=== PATIENT | male | born 1940 | race Caucasian/White ===

== ENCOUNTER → 2017-05-01 | Outpatient (REF) | payer MEDICARE ==
[~2017-05-01] MED LIST: FLOM5CAP PO; LIPI10TA PO; TRAM50TA2 PO
[2017-05-01 15:55] LABS: MEAN CORPUSCULAR HEMOGLOBIN 33.3 pg (27.0-33.0); MEAN CORPUSCULAR HGB CONC 33.7 g/dl (32.0-36.5); RED CELL DISTRIBUTION WIDTH 12.2 % (11.5-14.5); WHITE BLOOD COUNT 6.4 K/mm3 (4.0-10.0)
[2017-05-01 15:56] LABS: ALBUMIN 3.8 GM/DL (3.2-5.2); ALBUMIN/GLOBULIN RATIO 1.46 (1.00-1.93); ALKALINE PHOSPHATASE 53 U/L (45-117); ALT/SGPT 22 U/L (12-78); ANION GAP 3 MEQ/L (8-16); AST/SGOT 15 U/L (15-37); BILIRUBIN,TOTAL 0.6 MG/DL (0.2-1.0); BLOOD UREA NITROGEN 15 MG/DL (7-18); CALCIUM LEVEL 8.7 MG/DL (8.8-10.2); CARBON DIOXIDE LEVEL 29 MEQ/L (21-32); CHLORIDE LEVEL 107 MEQ/L (98-107); CHOLESTEROL LEVEL 140 MG/DL (<200); CREATININE FOR GFR 0.87 MG/DL (0.70-1.30); GLOMERULAR FILTRATION RATE > 60.0 (>42); GLUCOSE, FASTING 93 MG/DL (83-110); POTASSIUM SERUM 4.5 MEQ/L (3.5-5.1); SODIUM LEVEL 139 MEQ/L (136-145); TOTAL PROTEIN 6.4 GM/DL (6.4-8.2); TRIGLYCERIDES LEVEL 99 MG/DL (<150)
== END ==
LOC: M SFHCPLAZ 13:45
PROVIDERS: ATTEND Internal Medicine
DX: Z86.010 Personal history of colon polyps (principal); R73.01 Impaired fasting glucose; E78.00 Pure hypercholesterolemia, unspecified

== ENCOUNTER → 2017-09-12 | Outpatient (CLI) | payer MEDICARE ==
--- NOTE | 2017-09-12 16:04 | REP ---
MRI LUMBAR SPINE WITHOUT CONTRAST: HISTORY: Spondylosis. Decreased signal intensity on T2-weighted images is present in the visualized thoracic and lumbar intervertebral discs. The discs are decreased in height. These findings are consistent with disc degeneration. A diffuse disc bulge with associated osteophyte formation is present at the L1-2 level. There is hypertrophy of the ligamenta flava and posterior articulating facets. These findings produce moderate central canal stenosis. There is compression of the left L1 nerve in the neural foramen. The right L1 nerve exits the neural foramen without compression. A diffuse disc bulge with associated osteophyte formation is present at the L2-3 level. There is hypertrophy of the ligamenta flava and posterior articulating facets. These findings produce mild central canal stenosis. The L2 nerves exit the neural foramina without compression. A diffuse disc bulge is present at the L3-4 level. There are 4 mm of retrolisthesis of L3 on L4. There is hypertrophy of the posterior articulating facets. There is minimal compression of the thecal sac. There is compression of the right L3 nerve in the neural foramen. The left L3 nerve exits the neural foramen without compression. A laminectomy defect is present. A diffuse disc bulge with associated osteophyte formation is present at the L4-5 level. There is minimal compression of the thecal sac. There is hypertrophy of the posterior articulating facets. There is compression of the L4 nerves in the neural foramina. A laminectomy defect is present. A diffuse disc bulge with associated osteophyte formation is present at the L5-S1 level. There is minimal compression of the thecal sac. There is hypertrophy of the posterior articulating facets. There is compression of the L5 nerves in the neural foramina. A laminectomy defect is present. The conus medullaris is normal in appearance terminating at the level of the T12-L1 intervertebral disc. Increased signal intensity on T2-weighted images is present in the endplates of the L1 through S1 vertebral bodies. This represents degenerative change. There scoliosis convex to the right. IMPRESSION: 1. Moderate central canal stenosis at the L1-2 level secondary to disc bulge, ligamentous and facet hypertrophy and osteophyte formation. 2. Mild central canal stenosis at the L2-3 level secondary to disc bulge, ligamentous and facet hypertrophy, and osteophyte formation. 3. Diffuse disc bulge and retrolisthesis at the L3-4 level with minimal thecal sac compression. 4. Diffuse disc bulge with associated osteophyte formation at the L4-5 and L5-S1 levels with minimal thecal sac compression. 5. The patient is status post L3 to L5 laminectomy. Signed by Kyle Thompson MD 09/12/2017 04:12 P
== END ==
LOC: M PLARAD 14:06
PROVIDERS: ATTEND Physical Medicine & Rehabilitation
DX: M51.26 Other intervertebral disc displacement, lumbar region (principal); M48.061 Spinal stenosis, lumbar region without neurogenic claudication; M12.88 Other specific arthropathies, not elsewhere classified, other specified site; M51.27 Other intervertebral disc displacement, lumbosacral region; M96.1 Postlaminectomy syndrome, not elsewhere classified

== ENCOUNTER → 2018-03-27 | Outpatient (REF) | payer MEDICARE ==
[2018-03-27 19:40] LABS: SOURCE, BODY FLUID LFT ELBOW
[2018-03-27 19:41] LABS: APPEARANCE, BODY FLUID TURBID (CLEAR); CRYSTALS, BODY FLUID NONE SEEN (NONE SEEN); SOURCE, BODY FLUID CRYSTALS RT ELBOW; SYNOVIAL FLUID COLOR RED (YELLOW)
[2018-03-27 19:45] LABS: BF MONONUCLEAR CELL % 90.5 % (0-0); BF POLYMORPHONUCLEAR CELL % 9.5 % (0-0); RBC BODY FLUID 81 10^3/uL (<2); WBC BODY FLUID 273 /uL (0-10)
[2018-03-27 19:50] LABS: BF DIFF IF INDICATED? YES (NO)
[2018-03-27 19:57] LABS: SOURCE, BODY FLUID GLUCOSE RT ELBOW; SOURCE, BODY FLUID URIC ACID RT ELBOW; URIC ACID, BODY FLUID 5.1 MG/DL (NOT ESTABLISHED)
[2018-03-30 08:34] LABS: BODY FLUID RHEUMATOID SCREEN NEGATIVE (NEGATIVE)
[2018-03-30 08:35] LABS: MUCIN CLOT TEST 1+ (4+)
== END ==
LOC: M LAB REF 18:25
DX: M70.21 Olecranon bursitis, right elbow (principal)
CPT/HCPCS: 82945

== ENCOUNTER → 2018-03-31 | Outpatient (REF) | payer MEDICARE ==
[2018-03-31 16:29] LABS: APPEARANCE, URINE CLEAR (CLEAR); BACTERIA, URINE AUTO NEGATIVE (NEGATIVE); BILIRUBIN, URINE AUTO NEGATIVE (NEGATIVE); BLOOD, URINE BLOOD NEGATIVE (NEGATIVE); COLOR, URINE YELLOW (YELLOW); GLUCOSE, URINE (UA) AUTO NEGATIVE (NEGATIVE); KETONE, URINE AUTO NEGATIVE (NEGATIVE); LEUKOCYTE ESTERASE, URINE AUTO NEGATIVE (NEGATIVE); MUCUS, URINE SMALL (NEGATIVE); NITRITE, URINE AUTO NEGATIVE (NEGATIVE); PROTEIN, URINE AUTO NEGATIVE (NEGATIVE); RBC, URINE AUTO 0 /HPF (0-3); SPECIFIC GRAVITY URINE AUTO 1.018 (1.002-1.035); SQUAMOUS EPITHELIAL CELL UR AU 0 /HPF (0-6); UROBILINOGEN, URINE AUTO 0.2 mg/dL (0.0-2.0); WBC, URINE AUTO 1 /HPF (0-3)
[2018-03-31 16:30] LABS: ESTIMATED AVERAGE GLUCOSE 105 MG/DL (60-110); HEMOGLOBIN 14.4 g/dl (13.5-17.5); HEMOGLOBIN A1c 5.3 %; MEAN CORPUSCULAR HEMOGLOBIN 32.5 pg (27.0-33.0); MEAN CORPUSCULAR HGB CONC 33.5 g/dl (32.0-36.5); MEAN CORPUSCULAR VOLUME 97.1 fl (80.0-96.0); PLATELET COUNT, AUTOMATED 224 10^3/uL (150-450); RED BLOOD COUNT 4.43 10^6/uL (4.30-6.10); RED CELL DISTRIBUTION WIDTH 12.7 % (11.5-14.5); WHITE BLOOD COUNT 6.7 10^3/uL (4.0-10.0)
[2018-03-31 16:31] LABS: ALBUMIN 3.7 GM/DL (3.2-5.2); ALBUMIN/GLOBULIN RATIO 1.23 (1.00-1.93); ALKALINE PHOSPHATASE 61 U/L (45-117); ALT/SGPT 23 U/L (12-78); ANION GAP 7 MEQ/L (8-16); AST/SGOT 16 U/L (7-37); BILIRUBIN,TOTAL 0.5 MG/DL (0.2-1.0); BLOOD UREA NITROGEN 13 MG/DL (7-18); CALCIUM LEVEL 8.5 MG/DL (8.8-10.2); CARBON DIOXIDE LEVEL 27 MEQ/L (21-32); CHLORIDE LEVEL 108 MEQ/L (98-107); CHOLESTEROL LEVEL 116 MG/DL (<200); CREATININE FOR GFR 0.87 MG/DL (0.70-1.30); GLOMERULAR FILTRATION RATE > 60.0 (>42); GLUCOSE, FASTING 93 MG/DL (70-100); HDL CHOLESTEROL 50 MG/DL (>40); LDL CHOLESTEROL 48.2 MG/DL (<100); NON-HDL-C 66 MG/DL; POTASSIUM SERUM 4.3 MEQ/L (3.5-5.1); PSA SCREENING 0.37 NG/ML (< 4.0); SODIUM LEVEL 142 MEQ/L (136-145); TOTAL PROTEIN 6.7 GM/DL (6.4-8.2); TRIGLYCERIDES LEVEL 89 MG/DL (<150)
[2018-03-31 16:49] LABS: MALB URINE SIEMENS 21.1 MG/L; MAU/CREAT RATIO 13.4 MCG/MG (0.0-30.0)
== END ==
LOC: M LABDRAW1 15:59
DX: K21.9 Gastro-esophageal reflux disease without esophagitis (principal); R73.01 Impaired fasting glucose; E78.00 Pure hypercholesterolemia, unspecified; N40.2 Nodular prostate without lower urinary tract symptoms; R31.9 Hematuria, unspecified
CPT/HCPCS: 80053

== ENCOUNTER 2020-05-26 23:13 | Emergency (ER) | payer MEDICARE ==
[~2020-05-26 23:13] MED LIST changes: +FLOM0.4C39 PO; -FLOM5CAP PO
[2020-05-26] MEDS ORDERED: METOPROLOL 5 MG/5 ML VIAL ONE ×2 (23:51)
[2020-05-26] MEDS ORDERED: METOPROLOL TART 50 MG TAB ONE (23:51)
[2020-05-27] MEDS ORDERED: METOPROLOL TART 50 MG TAB ONE (00:07)
[2020-07-02 17:08] LABS: HEMATOCRIT 47.6 % (42.0-52.0); HEMOGLOBIN 15.7 g/dl (13.5-17.5); MEAN CORPUSCULAR HEMOGLOBIN 32.6 pg (27.0-33.0); PLATELET COUNT, AUTOMATED 217 10^3/uL (150-450); RED BLOOD COUNT 4.81 10^6/uL (4.30-6.10); WHITE BLOOD COUNT 6.3 10^3/uL (4.0-10.0)
--- NOTE | 2020-07-12 15:48 | ECGEPIP ---
SINUS RHYTHM POSSIBLE INFERIOR MYOCARDIAL INFARCTION, PROBABLY OLD WITH POSTERIOR EXTENSION BORDERLINE ECG INTERPRETATION BASED ON A DEFAULT AGE OF 40 YEARS NO OLD AVAILABLE SEE SCANNED DOWNTIME REPORT MTDD
--- NOTE | 2020-07-13 17:24 | ECGEPIP ---
ATRIAL FIBRILLATION WITH RVR POSSIBLE PRIOR INFERIOR WV NONSPECIFIC ST & T-WAVE CHANGES SEE SCANNED DOWNTIME REPORT MTDD
[2020-08-05 10:52] LABS: BLOOD UREA NITROGEN 16 MG/DL (7-18); CALCIUM LEVEL 8.9 MG/DL (8.8-10.2); CARBON DIOXIDE LEVEL 30 MEQ/L (21-32); CHLORIDE LEVEL 103 MEQ/L (98-107); CREATININE FOR GFR 1.01 MG/DL (0.70-1.30); GLOMERULAR FILTRATION RATE > 60.0 (>35); GLUCOSE, FASTING 132 MG/DL (70-100); POTASSIUM SERUM 3.7 MEQ/L (3.5-5.1); SODIUM LEVEL 138 MEQ/L (136-145); TROPONIN I < 0.02 NG/ML (< 0.10)
== END 2020-05-27 00:23 | disposition home or self-care (01) ==
LOC: M ED 23:13
DX: I48.0 Paroxysmal atrial fibrillation (principal)

== ENCOUNTER → 2020-06-02 | Outpatient (REF) | payer MEDICARE ==
[~2020-06-02] MED LIST changes: +METO1TAB32
[2020-07-01 01:20] LABS: HEMATOCRIT 45.6 % (42.0-52.0); MEAN CORPUSCULAR HEMOGLOBIN 33.6 pg (27.0-33.0); MEAN CORPUSCULAR HGB CONC 32.9 g/dl (32.0-36.5); MEAN CORPUSCULAR VOLUME 102.2 fl (80.0-96.0); PLATELET COUNT, AUTOMATED 225 10^3/uL (150-450); RED BLOOD COUNT 4.46 10^6/uL (4.30-6.10); WHITE BLOOD COUNT 7.9 10^3/uL (4.0-10.0)
[2020-07-19 03:01] LABS: ALBUMIN 3.9 GM/DL (3.2-5.2); ALT/SGPT 36 U/L (12-78); BILIRUBIN,TOTAL 0.5 MG/DL (0.2-1.0); BLOOD UREA NITROGEN 13 MG/DL (7-18); CALCIUM LEVEL 9.1 MG/DL (8.8-10.2); CARBON DIOXIDE LEVEL 30 MEQ/L (21-32); CHLORIDE LEVEL 107 MEQ/L (98-107); CHOLESTEROL LEVEL 125 MG/DL (<200); CHOLESTEROL RISK RATIO 2.403 (<5); CREATININE FOR GFR 0.91 MG/DL (0.70-1.30); GLOMERULAR FILTRATION RATE > 60.0 (>35); GLUCOSE, FASTING 85 MG/DL (70-100); HDL CHOLESTEROL 52 MG/DL (>40); LDL CHOLESTEROL 57 MG/DL (<100); NON-HDL-C 73 MG/DL; POTASSIUM SERUM 4.3 MEQ/L (3.5-5.1); SODIUM LEVEL 140 MEQ/L (136-145); TOTAL PROTEIN 6.7 GM/DL (6.4-8.2); TRIGLYCERIDES LEVEL 81 MG/DL (<150)
== END ==
LOC: M SFHCPLAZ 11:26
PROVIDERS: ATTEND Internal Medicine
DX: E78.00 Pure hypercholesterolemia, unspecified (principal); I10 Essential (primary) hypertension

== ENCOUNTER 2020-08-08 22:42 | Emergency (ER) | payer MEDICARE ==
[~2020-08-08] VITALS: Ht 193 cm; Wt 95.0 kg
[~2020-08-08 22:42] MED LIST changes: -METO1TAB32
--- NOTE | 2020-08-09 00:08 | REPVR ---
PROCEDURE INFORMATION: Exam: XR Chest, 1 View Exam date and time: 08/08/2020 11:38 PM Age: 80 years old Clinical indication: Other: Chest pain TECHNIQUE: Imaging protocol: XR of the chest Views: 1 view. COMPARISON: CR Chest, 2 view PA, Lat 05/26/2020 11:52 PM FINDINGS: Lungs: Degree of lung inflation is normal. No evidence of pulmonary edema. No focal consolidation or parenchymal lung mass. Pleural space: No pleural effusion or pneumothorax. Heart/Mediastinum: Cardiac silhouette appears normal. No adenopathy or hilar mass. Bones/joints: Osseous structures show no concerning abnormality. 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 IMPRESSION: No acute or focal cardiopulmonary process. Electronically signed by: Ap Griffith On 08/09/2020 00:08:37 AM
[2020-08-09 00:17] LABS: BASO # 0.1 10^3/uL (0.0-0.2); BASO % 0.7 % (0.0-1.0); EOS # 0.3 10^3/uL (0.0-0.5); EOS % 4.9 % (0.0-3.0); HEMATOCRIT 42.6 % (42.0-52.0); HEMOGLOBIN 13.8 g/dl (13.5-17.5); LYMPH % 28.4 % (24.0-44.0); MEAN CORPUSCULAR HEMOGLOBIN 32.2 pg (27.0-33.0); MEAN CORPUSCULAR HGB CONC 32.4 g/dl (32.0-36.5); MEAN CORPUSCULAR VOLUME 99.5 fl (80.0-96.0); MONO # 0.7 10^3/uL (0.0-0.8); MONO % 9.3 % (0.0-5.0); NEUTROPHILS % 56.4 % (36.0-66.0); PLATELET COUNT, AUTOMATED 223 10^3/uL (150-450); RED BLOOD COUNT 4.28 10^6/uL (4.30-6.10)
[2020-08-09 00:59] LABS: BLOOD UREA NITROGEN 21 MG/DL (7-18); CALCIUM LEVEL 8.7 MG/DL (8.8-10.2); CARBON DIOXIDE LEVEL 27 MEQ/L (21-32); CHLORIDE LEVEL 109 MEQ/L (98-107); CK-MB VALUE MASS 2.3 NG/ML (<3.6); CPK CREATINE PHOSPHOKINASE 120 U/L (39-308); CREATININE FOR GFR 0.97 MG/DL (0.70-1.30); GLOMERULAR FILTRATION RATE > 60.0 (>35); GLUCOSE, FASTING 107 MG/DL (70-100); MAGNESIUM LEVEL 2.5 MG/DL (1.8-2.4); MB/CK RELATIVE INDEX 1.92 (< OR =4); POTASSIUM SERUM 4.4 MEQ/L (3.5-5.1); SODIUM LEVEL 141 MEQ/L (136-145); TROPONIN I < 0.02 NG/ML (< 0.10)
[2020-08-09 01:59] VITALS: BP 136/68
[2020-08-09] MEDS ORDERED: METO1TAB32 (02:02)
--- NOTE | 2020-08-09 07:20 | ECGEPIP ---
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
== END 2020-08-09 02:39 | disposition home or self-care (01) ==
LOC: M ED 22:42
DX: I48.91 Unspecified atrial fibrillation (principal); Z88.1 Allergy status to other antibiotic agents

== ENCOUNTER → 2021-06-06 | Outpatient (REF) | payer MEDICARE ==
[~2021-06-06] MED LIST changes: +ASPI-161 PO; +ATOR40TA75 PO; +AUGM875T28 PO; +GLUC500C37 PO; +HYDR-4517; +HYDR-4517 PO; +METO1TAB32; +METO1TAB32 PO; +OMEP-218 PO; +TADA20TA
[2021-06-06 18:15] LABS: HEMATOCRIT 37.8 % (42.0-52.0); HEMOGLOBIN 13.1 g/dl (13.5-17.5); MEAN CORPUSCULAR HEMOGLOBIN 32.2 pg (27.0-33.0); MEAN CORPUSCULAR HGB CONC 34.7 g/dl (32.0-36.5); MEAN CORPUSCULAR VOLUME 92.9 fl (80.0-96.0); PLATELET COUNT, AUTOMATED 199 10^3/uL (150-450); RED BLOOD COUNT 4.07 10^6/uL (4.30-6.10); WHITE BLOOD COUNT 5.5 10^3/uL (4.0-10.0)
[2021-06-06 18:49] LABS: HEMOGLOBIN A1c 5.1 %
[2021-06-06 19:17] LABS: ALBUMIN 3.1 GM/DL (3.2-5.2); ALT/SGPT 475 U/L (12-78); BILIRUBIN,TOTAL 4.9 MG/DL (0.2-1.0); BLOOD UREA NITROGEN 10 MG/DL (7-18); CALCIUM LEVEL 8.5 MG/DL (8.8-10.2); CARBON DIOXIDE LEVEL 26 MEQ/L (21-32); CHLORIDE LEVEL 106 MEQ/L (98-107); CHOLESTEROL LEVEL 194 MG/DL (<200); CHOLESTEROL RISK RATIO 16.166 (<5); CREATININE FOR GFR 0.76 MG/DL (0.70-1.30); GLOMERULAR FILTRATION RATE > 60.0 (>35); GLUCOSE, FASTING 92 MG/DL (70-100); HDL CHOLESTEROL 12 MG/DL (>40); LDL CHOLESTEROL 158 MG/DL (<100); NON-HDL-C 182 MG/DL; POTASSIUM SERUM 3.7 MEQ/L (3.5-5.1); SODIUM LEVEL 140 MEQ/L (136-145); TOTAL PROTEIN 6.2 GM/DL (6.4-8.2); TRIGLYCERIDES LEVEL 119 MG/DL (<150)
== END ==
LOC: M PLALAB 16:47
PROVIDERS: ATTEND Internal Medicine
DX: R73.01 Impaired fasting glucose (principal); N40.2 Nodular prostate without lower urinary tract symptoms; I48.0 Paroxysmal atrial fibrillation; E78.00 Pure hypercholesterolemia, unspecified; Z86.010 Personal history of colon polyps

== ENCOUNTER 2021-06-07 18:38 | Inpatient (IN) | payer MEDICARE ==
[~2021-06-07] VITALS: Ht 193 cm; Wt 86.7 kg
[~2021-06-07 18:38] MED LIST changes: -ASPI-161 PO; -ATOR40TA75 PO; -AUGM875T28 PO; -GLUC500C37 PO; -HYDR-4517; -HYDR-4517 PO; -METO1TAB32 PO; -OMEP-218 PO; -TADA20TA
[2021-06-07] MEDS ORDERED: TADA20TA (18:47)
[2021-06-07] MEDS ORDERED: HYDR-4517 (18:47)
[2021-06-07 19:35] LABS: HEMATOCRIT 38.1 % (42.0-52.0); HEMOGLOBIN 13.3 g/dl (13.5-17.5); MEAN CORPUSCULAR HEMOGLOBIN 31.7 pg (27.0-33.0); MEAN CORPUSCULAR HGB CONC 34.9 g/dl (32.0-36.5); MEAN CORPUSCULAR VOLUME 90.9 fl (80.0-96.0); PLATELET COUNT, AUTOMATED 203 10^3/uL (150-450); RED BLOOD COUNT 4.19 10^6/uL (4.30-6.10); WHITE BLOOD COUNT 7.2 10^3/uL (4.0-10.0)
[2021-06-07 19:50] LABS: INR 1.02; PROTHROMBIN TIME 13.8 SECONDS (12.7-14.5)
[2021-06-07 19:51] LABS: PARTIAL THROMBOPLASTIN TIME 37.4 SECONDS (25.9-37.0)
--- NOTE | 2021-06-07 20:03 | REP ---
INDICATION: generalized abd pain, new jaundice. COMPARISON: None. TECHNIQUE: Multiple ultrasonographic images of the abdominal right upper quadrant. FINDINGS: There is biliary sludge in the gallbladder. There is a tiny 3 mm calculus within the biliary sludge. There is no gallbladder wall thickening or pericholecystic fluid to suggest acute cholecystitis. There is intrahepatic biliary duct dilatation. The common biliary duct is dilated measuring up to 12 mm in diameter. The hepatic parenchyma is homogeneous. The pancreas is obscured by bowel gas. The right kidney measures 10.7 x 5.0 x 6.1 cm and is normal size. There is no right renal hydronephrosis or calculus. There is no right renal solid or cystic mass. There is no right upper quadrant abdominal free fluid. IMPRESSION: Dilated intrahepatic and extrahepatic biliary ducts. The common duct measures 12 mm in diameter. Given symptomatology, consider MRCP for further evaluation of the common duct and possible common duct obstruction. The pancreas is obscured by bowel gas. <Electronically signed by Tushar Reyes > 06/07/211958
[2021-06-07 20:28] LABS: ALBUMIN 3.3 GM/DL (3.2-5.2); ALT/SGPT 488 U/L (12-78); BILIRUBIN,DIRECT 5.3 MG/DL (0.0-0.2); BILIRUBIN,TOTAL 6.2 MG/DL (0.2-1.0); BLOOD UREA NITROGEN 13 MG/DL (7-18); CALCIUM LEVEL 8.7 MG/DL (8.8-10.2); CARBON DIOXIDE LEVEL 25 MEQ/L (21-32); CHLORIDE LEVEL 107 MEQ/L (98-107); GLOMERULAR FILTRATION RATE > 60.0 (>35); GLUCOSE, FASTING 100 MG/DL (70-100); HEPATITIS B SURFACE ANTIGEN NEGATIVE (NEGATIVE); LIPASE 253 U/L (73-393); POTASSIUM SERUM 3.8 MEQ/L (3.5-5.1); SODIUM LEVEL 140 MEQ/L (136-145); TOTAL PROTEIN 6.7 GM/DL (6.4-8.2)
[2021-06-07] MEDS: GASTROGRAFIN SOLUTION 30ML PO SCH ×2 (20:33→21:05)
[2021-06-07 20:43] LABS: HEPATITIS B CORE ANTIBODY IGM NEGATIVE (NEGATIVE); HEPATITIS C VIRUS ABY INDEX 0.1 INDEX (<0.8)
[2021-06-07 20:46] LABS: HEPATITIS A ANTIBODY IGM NEGATIVE (NEGATIVE)
[2021-06-07] MEDS ORDERED: ISOVUE-370 76% 100ML VIAL As Ordered ONE (21:55)
[2021-06-07] MEDS ORDERED: amLODIPine 5 MG TAB PO ONE (23:05)
--- NOTE | 2021-06-07 23:56 | REPVR ---
PROCEDURE INFORMATION: Exam: CT Abdomen And Pelvis With Contrast Exam date and time: 06/07/2021 10:42 PM Age: 81 years old Clinical indication: Abdominal pain; Generalized; Additional info: General abd pain, elevated lfts, weight loss TECHNIQUE: Imaging protocol: Computed tomography of the abdomen and pelvis with contrast. Radiation optimization: All CT scans at this facility use at least one of these dose optimization techniques: automated exposure control; mA and/or kV adjustment per patient size (includes targeted exams where dose is matched to clinical indication); or iterative reconstruction. Contrast material: ISOVUE 370; Contrast volume: 100 ml; Contrast route: INTRAVENOUS (IV); COMPARISON: CR Pelvis, complete 06/22/2016 7:15 PM FINDINGS: Heart: The left atrium measures 5.5 cm in its AP dimension. Liver: Normal. No mass. Gallbladder and bile ducts: Mild intrahepatic biliary dilatation and enlarged CBD measuring 16 mm with abrupt occlusion at the level of the pancreatic head. The distal CBD is again seen beyond the apparent mass. Pancreas: There is corresponding dilatation of the pancreatic duct which measures up to 11 mm with abrupt occlusion at the level of the head/uncinate in approximately the same area as the bile duct. There is suspicion of a 2 cm mass adjacent to the ampulla. There is distention of an accessory pancreatic duct extending toward the uncinate measuring 10 mm. Coarse calcifications of the pancreas are noted. Spleen: Normal. No splenomegaly. Adrenal glands: Normal. No mass. Kidneys and ureters: Normal. No hydronephrosis. Stomach and bowel: Unremarkable. No obstruction. No mucosal thickening. Appendix: Partial visualization of a normal appendix. Intraperitoneal space: Unremarkable. No free air. No significant fluid collection. Vasculature: There is mild calcification of the abdominal aorta with extension into the iliac arteries. Lymph nodes: Enlarged peripancreatic node cephalad to the head measuring 13 x 13 x 18 mm. There is a smaller node interposed between the main portal vein and the IVC. Urinary bladder: Unremarkable as visualized. Reproductive: Unremarkable as visualized. Bones/joints: Left hip prosthesis in position. Soft tissues: Unremarkable. IMPRESSION: 1. Distention of the biliary tree and main pancreatic duct with abrupt cut off at approximately the same point with suspicion of a 2 cm pancreatic head mass which is viewed with suspicion for malignancy. There are slightly prominent peripancreatic nodes which may reflect early metastasis. 2. Mild cardiomegaly. 3. Coarse calcifications of the pancreas suggesting previous pancreatitis. Electronically signed by: Grady Chamberlain On 06/07/2021 23:55:40 PM
[2021-06-08] VITALS (10 sets, daily range): BP systolic 118–158; BP diastolic 59–70
[2021-06-08] MEDS: D5W/0.9% SODIUM CHLORIDE 1,000 ML IV SCH ×2 (01:05→16:46)
--- NOTE | 2021-06-08 01:06 | HPEPDOC ---
[facility] Medical History & Physical Date of Admission Jun 08, 2021 Date of Service: Jun 08, 2021 Primary Care Physician: Tate Nieto Attending Physician: CARIE CHATTERJEE MD History and Physical TIME OF SERVICE: 215am CHIEF COMPLAINT: sent by Beti Alaniz HISTORY OF PRESENT ILLNESS: Mr Petersen, an 81 yr old gentleman, was at office for his semi-annual physical exam; he was noted to have yellow skin and elevated LFTs and was sent to the ER for further evaluation. He has been having mid-abdominal discomfort which he describes as a sensation of having gas, stool that is helicopter engineer in color, 3 week in duration cloudy urine, a decrease in his appetite, and a 15 to 20 lb weight loss in the last 2 weeks. He denied having n/v/d. REVIEW OF SYSTEMS: 10-point review of systems negative except as listed in HPI PAST MEDICAL/ SURGICAL HISTORY: pre-DM, Paroxysmal A Fib s/p ablation procedures in January and May , BPH, GERD, DLP, carotid artery disease, chronic CAD s/p placement of a stent, chronic lower back pain s/p right lumbar laminectomy, resection of adenomatous polyp of the colon, tonsillectomy, carpal tunnel surgery, right inguinal hernia repair, left hip replacement SOCIAL HISTORY: He lives with his in [place] part of the year, doesnt smoke drink or use recreational drugs FAMILY HISTORY: His mother was diagnosed with pancreatic cancer at 93 yrs of age; he thinks that she didnt receive chemo but she lived for 2 years after her diagnosis. ALLERGIES: Please see below. HOME MEDICATIONS: Please see below. PHYSICAL EXAMINATION: Vital Signs Date Time Temp Pulse Resp B/P (MAP) Pulse Ox O2 Delivery O2 Flow Rate FiO2 06/07/21 18:39 98.4 71 18 137/59 (85) 94 Room Air GENERAL APPEARANCE: slim build / well developed / NAD HEENT: temporal wasting/ MM pink but slightly dry CARDIOVASCULAR: RRR/NMRG LUNGS: CTAB on RA ABDOMEN: contour flat / soft / no masses palpable/ he doesnt grimace w palpation MUSCULOSKELETAL: NCAT INTEGUMENT: he is jaundice (affecting both legs, arms, abdomen but not his face) NEUROLOGICAL: CN 2-12 intact / speech not dysarthric PSYCHIATRIC: A&Ox 3/ able to understand and follow all commands LABORATORY DATA: Prothrombin Time 13.8, Prothromb Time International Ratio 1.02, Activated Partial Thromboplast Time 37.4, Ammonia 40H Nucleated Red Blood Cells % (auto) 0.0, Anion Gap 8, Glomerular Filtration Rate > 60.0, Calcium Level 8.7L, Total Bilirubin 6.2H, Direct Bilirubin 5.3H, Aspartate Amino Transf (AST/SGOT) 555H, Alanine Aminotransferase (ALT/SGPT) 488H, Alkaline Phosphatase 1280H, Total Protein 6.7, Albumin 3.3, Albumin/Globulin Ratio 1.0, Lipase 253, Hepatitis A IgM Antibody NEGATIVE, Hepatitis B Surface Antigen NEGATIVE, Hepatitis B Core IgM Antibody NEGATIVE, Hepatitis C Antibody Index 0.1 IMAGING: CT abd/pelvis IMPRESSION: 1. Distention of the biliary tree and main pancreatic duct with abrupt cut off at approximately the same point with suspicion of a 2 cm pancreatic head mass which is viewed with suspicion for malignancy. There are slightly prominent peripancreatic nodes which may reflect early metastasis. 2. Mild cardiomegaly. 3. Coarse calcifications of the pancreas suggesting previous pancreatitis. US gallbladder IMPRESSION: Dilated intrahepatic and extrahepatic biliary ducts. The common duct measures 12 mm in diameter. Given symptomatology, consider MRCP for further evaluation of the common duct and possible common duct obstruction. The pancreas is obscured by bowel gas. MICROBIOLOGY: The respiratory panel is neg ASSESSMENT: Mr. Petersen is an 81 yr old w a hx of pre-DM, Paroxysmal A Fib s/p ablations x 2, BPH, DLP, carotid artery disease, chronic CAD, chronic lower back pain who is admitted for management of cholestasis 2/2 a pancreatic mass. PLAN: 1 Cholestasis Likely extrahepatic due to pancreatic mass Plan: admit to medical floor / NPO w IVF pending stent placement by in the morning / trend LFTs 2 Pancreatic Mass His mother also had pancreatic cancer which raises the suspicion that he may have an inherited genetic syndrome associated with pancreatic cancer (ie FACP) Plan: f/u w on path results and discuss genetic testing (he has several children who may need to know if this is a Familial Pancreatic Cancer) 3 HTN urgency He had a mild JACOME but denied having blurry vision, dyspnea or chest pain He had not received his night time medications yet Plan: telemetry / captopril / resume metoprolol & tamsulosin 4 BPH Plan: tamsulosin 5 DLP Plan: atorvastatin 6 carotid artery disease / chronic CAD Plan: ASA & atorvastatin 7 chronic lower back pain Plan: [place] His Ozzie Prediction Score (to determine the in-patient risk of VTE & need for anticoagulation) is 4; we will order TEDs/SCDs pending possible biopsy. After the procedure he should be started on pharmacological prophylaxis Dispo: home after at least 2 midnights stay His LACE Index Score is 10 points which indicates that he is at high risk for re-admission or within the next 30 days. A PFS consult has been placed for discharge planning Home Medications Scheduled Aspirin (Aspirin EC) 81 Mg Tablet.dr, 81 MG PO QHS Atorvastatin Calcium (Atorvastatin Calcium) 40 Mg Tablet, 40 MG PO QHS Glucosa Bui 2Kcl/Chondroitin Bui (Glucosamine & Chondroitin Cap) 1 Each Capsule, 3 CAP PO QHS Metoprolol Succinate (Metoprolol Succinate) 25 Mg Tab.er.24h, 25 MG PO QHS Tamsulosin HCl (Flomax) 0.4 Mg Capsule, 0.8 MG PO QHS Scheduled PRN Hydrocodone/Acetaminophen (Hydrocodone-Acetamin 10-325 mg) 1 Each Tablet, 1 TAB PO Q4H PRN for PAIN LEVEL 6-10 Allergies Coded Allergies: ciprofloxacin (Verified Allergy, Unknown, 06/07/21) clindamycin (Verified Allergy, Unknown, 06/07/21) CARIE CHATTERJEE MD Jun 08, 2021 01:06
[2021-06-08 01:38] LABS: RSV AMPLIFICATION POSITIVE (NEGATIVE)
[2021-06-08] MEDS ORDERED: ASPI-161 PO (02:17)
[2021-06-08] MEDS ORDERED: HYDR-4517 PO (02:17)
[2021-06-08] MEDS ORDERED: METO1TAB32 PO (02:17)
[2021-06-08] MEDS ORDERED: GLUC500C37 PO (02:17)
[2021-06-08] MEDS ORDERED: ATOR40TA75 PO (02:17)
[2021-06-08] MEDS ORDERED: FLOM0.4C39 PO (02:17)
[2021-06-08] MEDS ORDERED: HOME MED LIST COMPLETE! XX SCH (02:20)
[2021-06-08] MEDS ORDERED: CAPTOpril 6.25 MG PER 1/2 TABLET PO ONE (02:35)
[2021-06-08] MEDS: TAMSULOSIN 0.4 MG CAP PO SCH ×2 (03:14→21:04)
[2021-06-08] MEDS: RAMELTEON 8 MG TAB (ROZEREM) PO PRN ×2 (03:14→22:14)
[2021-06-08] MEDS: ASPIRIN 81MG ENTERIC TABLET PO SCH ×2 (03:14→21:05)
[2021-06-08] MEDS: ATORVASTATIN 20 MG TAB PO SCH ×2 (03:14→21:04)
[2021-06-08] MEDS: METOPROLOL SUCC *XL* 25MG TAB (TopROL *XL*) PO SCH ×2 (03:15→21:07)
[2021-06-08 05:06] LABS: INR 1.06; PROTHROMBIN TIME 14.2 SECONDS (12.7-14.5)
[2021-06-08 07:03] LABS: BASO # 0.1 10^3/uL (0.0-0.2); EOS # 0.6 10^3/uL (0.0-0.5); EOS % 8.6 % (0.0-3.0); HEMOGLOBIN 12.5 g/dl (13.5-17.5); LYMPH # 1.5 10^3/uL (1.5-5.0); LYMPH % 21.3 % (24.0-44.0); MEAN CORPUSCULAR HEMOGLOBIN 32.1 pg (27.0-33.0); MEAN CORPUSCULAR HGB CONC 34.7 g/dl (32.0-36.5); MEAN CORPUSCULAR VOLUME 92.3 fl (80.0-96.0); MONO # 0.7 10^3/uL (0.0-0.8); MONO % 10.5 % (2.0-8.0); NEUTROPHILS % 58.2 % (36.0-66.0); PLATELET COUNT, AUTOMATED 180 10^3/uL (150-450); WHITE BLOOD COUNT 6.8 10^3/uL (4.0-10.0)
[2021-06-08 07:26] LABS: ALBUMIN 2.8 GM/DL (3.2-5.2); ALT/SGPT 412 U/L (12-78); BILIRUBIN,TOTAL 6.6 MG/DL (0.2-1.0); BLOOD UREA NITROGEN 11 MG/DL (7-18); CALCIUM LEVEL 8.5 MG/DL (8.8-10.2); CARBON DIOXIDE LEVEL 28 MEQ/L (21-32); CHLORIDE LEVEL 105 MEQ/L (98-107); GLOMERULAR FILTRATION RATE > 60.0 (>35); GLUCOSE, FASTING 104 MG/DL (70-100); MAGNESIUM LEVEL 2.4 MG/DL (1.8-2.4); POTASSIUM SERUM 3.9 MEQ/L (3.5-5.1); SODIUM LEVEL 137 MEQ/L (136-145); TOTAL PROTEIN 6.3 GM/DL (6.4-8.2)
[2021-06-08] MEDS: ANEXSIA, NORCO 7.5MG/325MG TABLET(HYDROCODONE/APAP) PO PRN ×2 (12:51→17:49)
--- NOTE | 2021-06-08 12:58 | IPNPDOC ---
Text Note Date of Service The patient was seen on 06/08/21. NOTE Subjective: Patient is an 81-year-old male with a PMHx with a PMHx of Paroxsymal A. fib (s/p Ablation), CAD s/p stent, Carotid artery disease, Pre-DM, DLP, BPH, Chronic back pain (s/p R lumbar laminectomy), GERD, who presented to the emergency room, sent in by primary care provider's office for abnormal lab work. Patient has reported light-colored stools and dark urine for about 1 month duration. Patient was admitted to the hospital service for further evaluation and treatment. Gastroenterology was called on consultation. Patient was seen and examined at the bedside. Denies any Cp, SOB, palpitations. Denies any nausea, vomiting, any significant abdominal pain, diarrhea, or urinary discomfort. Objective: Vitals (See below) General: Lying in bed, appears comfortable, AAOx3 HEENT: NC, AT CVS: RRR, +S1S2 Lungs: Fair air entry b/l, no evidence of wheezing / rales / rales Abdomen: Soft, ND, NT Extremities: - Edema, - Calf tenderness Imaging: CT abdomen / pelvis 06/07: 1. Distention of the biliary tree and main pancreatic duct with abrupt cut off at approximately the same point with suspicion of a 2 cm pancreatic head mass which is viewed with suspicion for malignancy. There are slightly prominent peripancreatic nodes which may reflect early metastasis. 2. Mild cardiomegaly. 3. Coarse calcifications of the pancreas suggesting previous pancreatitis. Gallbladder US 06/07: Dilated intrahepatic and extrahepatic biliary ducts. The common duct measures 12 mm in diameter. Given symptomatology, consider MRCP for further evaluation of the common duct and possible common duct obstruction. The pancreas is obscured by bowel gas. Assessment and plan: Cholestasis - likely 2/2 extrahepatic etiology 2/2 suspected pancreatic mass - Clinically no significant abdominal pain, N /V - Reported to have dark urine and light colored stools - No abdominal tenderness - Imaging noted above - GI on consultation; Dr. Siddiqui; Case discussed - plan for ERCP today with likely stenting Pancreatic Mass - Family history of Pancreatic cancer (of mother) - Imaging noted above - Will await ERCP; Brushings will be sent for cytology - Patient will likely require EUS for Biopsy if cytology is unrevealing HTN urgency - BP appears well controlled - s/p Amlodipine, Captopril - c/w Metoprolol BPH - c/w Tamsulosin DLP - c/w Atorvastatin Carotid artery disease / Chronic CAD s/p Stent - c/w ASA & Atorvastatin Chronic lower back pain - c/w Hume DVT prophylaxis - c/w TEDs/Sequentials Disposition: - Awaiting for clinical improvement VS,Fishbone, I+O VS, Fishbone, I+O Laboratory Tests 06/07/21 19:13 06/08/21 04:39 Vital Signs Date Time Temp Pulse Resp B/P (MAP) Pulse Ox O2 Delivery O2 Flow Rate FiO2 06/08/21 12:00 98.1 55 20 131/63 (85) 97 Room Air I&O- Last 24 Hours up to 6 AM 06/08/21 06:00 Intake Total 0 ml Balance 0 ml JAIME RANGEL MD Jun 08, 2021 12:58
--- NOTE | 2021-06-08 13:35 | CR.PDOC ---
General Date of Consultation: Jun 08, 2021 Attending Physician: DAGO KEE MD Consultation GI consultation note Requesting Physician : Dr. Becerra Reason for consultation: abnormal liver enzyme HISTORY OF PRESENT ILLNESS: Pt is a 81 yo male who presents to [facility] ER after he was sent from his PCP (Dr. Zaragoza) office due to noticeable jaundice and abnormal LFTs. Patient states that hes noticed that hes had very little energy and feels weak and loss of appetite for the past month. He states that hes also noticed unintentional weight loss and has lost 10 Lbs in the past month. He has had some lower abdominal dull aches and feels bloated and his bowel movements has changed to a more light brown color and very loose in consistency. He has also noticed that hes been more jaundiced as well but at first attributed to his chilel from [place]. In the ER, imaging shows distention of biliary tree and main pancreatic duct and a 2cm pancreaetic head mass suspicious for malignancy. There's also evidence of prior pancreatitis. He denies any blood in stool. He denies any hematemesis, nausea vomiting. REVIEW OF SYSTEM: Constitutional: Denies fever, , shaking chills. Positive for 10Lb unintentional weight loss in the past month and positive for loss of appetite HEENT: Denies headache, head injury, neck pain, decreased hearing, vision changes, nasal discharge, nosebleeds, hoarseness, sore throat, lumps and bumps in the neck region. Respiratory: denies cough or sob. Denies hemoptysis. Cardiovascular: Denies chest pain or discomfort, Denies any palpitations, or any swelling in her extremities, PND, orthopnea GI: Denies any changes in bowel habits, rectal bleeding, constipation, changes in stool color from darker brown to light brown, more oily stool, more loose and not formed, but denies diarrhea. No blood in stool. no hematochezia. Musculoskeletal: weakness and fatigue reported Neurological: Denies any fainting, seizures, numbness, tingling, tremors PAST MEDICAL HISTORY: pre-DM, Paroxysmal A Fib s/p ablation procedures in January and May , BPH, GERD, DLP, carotid artery disease, chronic CAD s/p placement of a stent PAST SURGICAL HISTORY: chronic lower back pain s/p right lumbar laminectomy, resection of adenomatous polyp of the colon, tonsillectomy, carpal tunnel surgery, right inguinal hernia repair, left hip replacement FAMILY HISTORY: Mother from pancreatic ca @ 93. SOCIAL HISTORY: Lives in [place] with ; tobacco use quit at 38 but prior to that 2 packs/day. Drinks about 1 glass of wine per day about 6oz. Denies illicit drug use PHYSICAL EXAM: VS: See below General: jaundiced looking elderly gentleman, awake alert oriented appropriate mood and affect speech is clear able to speak in full sentences without any accessory muscle use or retractions HEENT icteric sclera bilaterlly, equal round reactive to light mucous membrane moist no lesions seen tongue is midline, some white plaques in oral mucosa seen. Neck/lymph supple no tracheal deviation or mass no evidence of bruit unable to palpate lymphadenopathy Cardiac NSR, no significant audible murmur rubs or gallop no evidence of elevated JVP no peripheral edema bilaterally Pulmonary no wheezing rhonci rales Abdomen: soft, nondistended, nontender on palpation. Noticeably jaundiced, norm al bowel sounds. Extremities no cyanosis clubbing or bruising or calf tenderness LAB DATA: SEE BELOW IMAGING CT abd/pelvis with IV and PO ctx: Distention of the biliary tree and main pancreatic duct with abrupt cut off at approximately the same point with suspicion of a 2 cm pancreatic head mass which is viewed with suspicion for malignancy. There are slightly prominent peripancreatic nodes which may reflect early metastasis. Coarse calcifications of the pancreas suggesting previous pancreatitis. GB u/s: Dilated intrahepatic and extrahepatic biliary ducts. The common duct measures 12 mm in diameter. Given symptomatology, consider MRCP for further evaluation of the common duct and possible common duct obstruction. The pancreas is obscured by bowel gas. ASSESSMENT AND PLAN: This is a 81 y/o male who's had a 4 week hx of loss of appetite unintentional 10 Lb weight loss, weakness and extreme fatigue. His abdominal pain is in the lower R and L quadrant that's a dull and constant ache. He denies any constipation, diarrhea, but described his stool changed from a formed to very loose stools and the color changed from a dark brown to light brown and oily stools. He also reports having very dark orange brown tinged urine lately. He was sent to the ER from his PCP's office after he was noticeably jaundiced and his LFTs are abnormal. In the ER, his imaging shows pancreatic mass and labs show cholestatic pattern with elevated AST/ALT and alkaline phosp likely due to blockage of bile and pancreatic duct by the mass. On exam, he was not tender and in light of his painless jaundice and with his imaging results, it is suspicious for pancreatic ca with mass compressing and blocking the bile and possibly pancreatic duct. Will perform ERCP in OR with possible stenting of bile duct for decompression as well as tissue samples and brushings of cells. Procedure has been explained to the patient and the risks have been discussed Thank you for this consultation. Please don't hesitate to call if you have further questions. Vital Signs/I&O Vital Signs Date Time Temp Pulse Resp B/P (MAP) Pulse Ox O2 Delivery O2 Flow Rate FiO2 06/08/21 12:51 16 06/08/21 12:00 98.1 55 131/63 (85) 97 Room Air I&O- Last 24 Hours up to 6 AM 06/08/21 06:00 Intake Total 0 ml Balance 0 ml Laboratory Data Labs 24H Laboratory Tests 2 06/07/21 19:12: Prothrombin Time 13.8, Prothromb Time International Ratio 1.02, Activated Partial Thromboplast Time 37.4, Ammonia 40H 06/07/21 19:13: Nucleated Red Blood Cells % (auto) 0.0, Anion Gap 8, Glomerular Filtration Rate > 60.0, Calcium Level 8.7L, Total Bilirubin 6.2H, Direct Bilirubin 5.3H, Aspartate Amino Transf (AST/SGOT) 555H, Alanine Aminotransferase (ALT/SGPT) 488H, Alkaline Phosphatase 1280H, Total Protein 6.7, Albumin 3.3, Albumin/Globulin Ratio 1.0, Lipase 253, Hepatitis A IgM Antibody NEGATIVE, Hepatitis B Surface Antigen NEGATIVE, Hepatitis B Core IgM Antibody NEGATIVE, Hepatitis C Antibody Index 0.1 06/08/21 00:54: Coronavirus (COVID-19)(PCR) NEGATIVE, Influenza Type A (RT-PCR) NEGATIVE, Influenza Type B (RT-PCR) NEGATIVE, Respiratory Syncytial Virus (PCR) POSITIVE 06/08/21 04:39: Prothrombin Time 14.2H, Prothromb Time International Ratio 1.06, Nucleated Red Blood Cells % (auto) 0.0, Anion Gap 4L, Glomerular Filtration Rate > 60.0, Calcium Level 8.5L, Total Bilirubin 6.6H, Aspartate Amino Transf (AST/SGOT) 480H, Alanine Aminotransferase (ALT/SGPT) 412H, Alkaline Phosphatase 1043H, Total Protein 6.3L, Albumin 2.8L, Albumin/Globulin Ratio 0.8, Immature Granulocyte % (Auto) 0.4, Neutrophils (%) (Auto) 58.2, Lymphocytes (%) (Auto) 21.3L, Monocytes (%) (Auto) 10.5H, Eosinophils (%) (Auto) 8.6H, Basophils (%) (Auto) 1.0, Neutrophils # (Auto) 4.0, Lymphocytes # (Auto) 1.5, Monocytes # (Auto) 0.7, Eosinophils # (Auto) 0.6H, Basophils # (Auto) 0.1, Magnesium Level 2.4 06/08/21 11:47: Bedside Glucose (Misc Panel) 104 CBC/BMP Laboratory Tests 06/07/21 19:13 06/08/21 04:39 Allergies Coded Allergies: ciprofloxacin (Verified Allergy, Unknown, 06/07/21) clindamycin (Verified Allergy, Unknown, 06/07/21) Home Medications Scheduled Aspirin (Aspirin EC) 81 Mg Tablet.dr, 81 MG PO QHS, (Reported) Atorvastatin Calcium (Atorvastatin Calcium) 40 Mg Tablet, 40 MG PO QHS, (Reported) Glucosa Bui 2Kcl/Chondroitin Bui (Glucosamine & Chondroitin Cap) 1 Each Capsule, 3 CAP PO QHS, (Reported) Metoprolol Succinate (Metoprolol Succinate) 25 Mg Tab.er.24h, 25 MG PO QHS, (Reported) Tamsulosin HCl (Flomax) 0.4 Mg Capsule, 0.8 MG PO QHS, (Reported) Scheduled PRN Hydrocodone/Acetaminophen (Hydrocodone-Acetamin 10-325 mg) 1 Each Tablet, 1 TAB PO Q4H PRN for PAIN LEVEL 6-10, (Reported) GME ATTESTATION GME ATTESTATION My faculty preceptor for this patient encounter was physically present during the encounter and was fully available. All aspects of the patient interview, examination, medical decision making process, and medical care plan development were reviewed and approved by the faculty preceptor. The faculty preceptor is aware and concurs with the plan as stated in the body of this note and will attest to such by his/her cosignature. Rissa Odom DO Jun 08, 2021 13:35
[2021-06-08] MEDS ORDERED: ISOVUE-300 61% 50ML VIAL As Ordered ONE (13:49)
[2021-06-08] MEDS ORDERED: ONDANSETRON 4MG/2ML VIAL As Ordered ONE (14:23)
[2021-06-08] MEDS ORDERED: propofoL 200 MG/20 ML VIAL As Ordered ONE (14:23)
[2021-06-08] MEDS ORDERED: MIDAZOLAM INJ 2MG/2ML VIAL (J2250 PER 1MG) As Ordered ONE (14:23)
[2021-06-08] MEDS ORDERED: fentaNYL 100 MCG/2 ML INJECTION (J3010) As Ordered ONE (14:23)
[2021-06-08] MEDS ORDERED: SUGAMMADEX SODIUM 500 MG/5 ML VIAL (BRIDION) As Ordered ONE (14:23)
[2021-06-08] MEDS ORDERED: LIDOCAINE 2% 100MG/5ML SDV (FOR ANES.) As Ordered ONE (14:23)
[2021-06-08] MEDS ORDERED: dexameTHASONE 4 MG/ML 1ML VIAL (J1100 PER 1MG) As Ordered ONE (14:23)
[2021-06-08] MEDS ORDERED: ROCURONIUM BROMIDE 50 MG/5 ML VIAL As Ordered ONE (14:23)
[2021-06-08] MEDS ORDERED: ePHEDrine SULFATE 25 MG/5 ML(5MG/ML) SYRINGE As Ordered ONE ×2 (15:04→15:08)
--- NOTE | 2021-06-08 16:01 | REP ---
INDICATION: POSSIBLE COMMON DUCT OBSTRUCTION. COMPARISON: None. TECHNIQUE: 50 seconds of fluoroscopy time was provided for the exam. 66 fluoroscopic images were obtained in have been submitted to the Department of Radiology for review FINDINGS: Varying degrees of opacification of the biliary tract is identified. Radiographic contrast material is seen normally refluxing in the small bowel. The images provided show no definite intraluminal filling defects. A stent was placed in the common bile duct. IMPRESSION: As above <Electronically signed by Padilla Ceballos > 06/08/21 [id number]
[2021-06-08] MEDS ORDERED: fentaNYL 100 MCG/2 ML INJECTION (J3010) IV PRN (16:15)
[2021-06-08] MEDS ORDERED: ONDANSETRON 4MG/2ML VIAL IV PRN (16:15)
[2021-06-08] MEDS ORDERED: LR 1,000 ML IV SCH (16:15)
--- NOTE | 2021-06-08 16:17 | ROOR ---
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 Inpatient 2. Inpatient Requesting Provider: Medicines: Monitored Anesthesia Care Complications: No immediate complications. Procedure: Pre-Anesthesia Assessment: - Prior to the procedure, a History and Physical was performed, and patient medications and allergies were reviewed. The patient is competent. The risks and benefits of the procedure and the sedation options and risks were discussed with the patient. All questions were answered and informed consent was obtained. Patient identification and proposed procedure were verified by the physician, the nurse and the anesthesiologist in the procedure room. Mental Status Examination: alert and oriented. Airway Examination: normal oropharyngeal airway and neck mobility. Respiratory Examination: clear to auscultation. CV Examination: normal. Prophylactic Antibiotics: The patient does not require prophylactic antibiotics. Prior Anticoagulants: The patient has taken no previous anticoagulant or antiplatelet agents. ASA Grade Assessment: II - A patient with mild systemic disease. After reviewing the risks and benefits, the patient was deemed in satisfactory condition to undergo the procedure. The anesthesia plan was to use monitored anesthesia care (MAC). Immediately prior to administration of medications, the patient was re-assessed for adequacy to receive sedatives. The heart rate, respiratory rate, oxygen saturations, blood pressure, adequacy of pulmonary ventilation, and response to care were monitored throughout the procedure. The physical status of the patient was re-assessed after the procedure. The Duodenoscope was introduced through the mouth, and advanced to the duodenum and used to inject contrast into the bile duct. The ERCP was accomplished without difficulty. The patient tolerated the procedure well. Findings: The wet primer powder blender film was normal. The esophagus was successfully intubated under direct vision without detailed examination of the pharynx, larynx, and associated structures, and upper GI tract. The upper GI tract was grossly normal. The major papilla was prominent. A 0.035 inch x 260 cm straight Hydra Jagwire was passed into the biliary tree. The short-nosed traction sphincterotome was passed over the guidewire and the bile duct was then deeply cannulated. Contrast was injected. I personally interpreted the bile duct images. Ductal flow of contrast was adequate. Image quality was adequate. Contrast extended to the cystic duct. Contrast extended to the entire biliary tree. The main bile duct and cystic duct were diffusely dilated, with a mass causing an obstruction. The largest diameter was 15 mm. The lower third of the main bile duct contained a single severe localized stenosis 20 mm in length. Biliary sphincterotomy was made with a monofilament traction (standard) sphincterotome using ERBE electrocautery. There was no post-sphincterotomy bleeding. Cells for cytology were obtained by brushing in the lower third of the main bile duct. One 10 Fr by 12 cm plastic stent with a single external flap and a single internal flap was placed 9 cm into the common bile duct. Bile flowed through the stent. The stent was in good position. Occlusion cholangiogram at the end of the procedure did not show any residual filling defects. Pancreatic duct was neither cannulated nor opacified. Impression: - The major papilla appeared to be prominent. - A single localized severe biliary stricture was found in the lower third of the main bile duct. - The cystic duct and entire main bile duct were dilated, with a mass causing an obstruction. - A biliary sphincterotomy was performed. - Cells for cytology obtained in the lower third of the main duct. - One plastic stent was placed into the common bile duct. Recommendation: - The patient will be observed post-procedure, until all discharge criteria are met. - Patient has a contact number available for emergencies. The signs and symptoms of potential delayed complications were discussed with the patient. Return to normal activities tomorrow. Written discharge instructions were provided to the patient. - No ibuprofen, naproxen, or other non-steroidal anti-inflammatory drugs. - Clear liquid diet today, then advance as tolerated to high fiber diet and low fat diet. - Use Prilosec (omeprazole) 40 mg PO daily for 4 weeks. - Use broad spectrum antibiotics for 7 days. - Await cytology results. - Telephone GI clinic for pathology results # [phone] to review results over phone in 1 week. - Refer to an oncologist in 1 week. - Refer to a surgeon in 1 week. - Return to this GI clinic or Oncology center GI physician (depending on clinical course) for stent exchange at ERCP in 6 weeks. - Return to primary care physician. Procedure Code(s): --- Professional --- 68766, Endoscopic retrograde cholangiopancreatography (ERCP); with placement of endoscopic stent into biliary or pancreatic duct, including pre- and post-dilation and guide wire passage, when performed, including sphincterotomy, when performed, each stent [id number], 26, Endoscopic catheterization of the biliary ductal system, radiological supervision and interpretation Diagnosis Code(s): --- Professional --- K83.1, Obstruction of bile duct K82.0, Obstruction of gallbladder C25.0, Malignant neoplasm of head of pancreas K83.8, Other specified diseases of biliary tract CPT copyright 2019 [employer]. All rights reserved. The codes documented in this report are preliminary and upon acquisition professional review may be revised to meet current compliance requirements. Bharath Siddiqui MD Bharath Siddiqui MD 06/08/2021 4:16:59 PM Electronically signed by Bharath Siddiqui MD Number of Addenda: 0 Note Initiated On: 06/08/2021 2:45 PM Estimated Blood Loss: Estimated blood loss was minimal.
[2021-06-08] MEDS: OMEPRAZOLE 20 MG CAP PO SCH (16:46)
[2021-06-08] MEDS ORDERED: cefTRIAXone SOD 1 GM in D5W MINI-BAG PLUS 50 ML IV SCH (18:00)
[2021-06-08] MEDS ORDERED: LR 1,000 ML IV ONE (21:15)
[2021-06-09 04:00] VITALS: BP 110/58
[2021-06-09 07:30] LABS: HEMATOCRIT 36.3 % (42.0-52.0); HEMOGLOBIN 12.5 g/dl (13.5-17.5); MEAN CORPUSCULAR HEMOGLOBIN 31.9 pg (27.0-33.0); MEAN CORPUSCULAR HGB CONC 34.4 g/dl (32.0-36.5); MEAN CORPUSCULAR VOLUME 92.6 fl (80.0-96.0); PLATELET COUNT, AUTOMATED 180 10^3/uL (150-450); RED BLOOD COUNT 3.92 10^6/uL (4.30-6.10); WHITE BLOOD COUNT 5.7 10^3/uL (4.0-10.0)
[2021-06-09] MEDS: OMEPRAZOLE 20 MG CAP PO SCH (07:59)
[2021-06-09 08:15] VITALS: BP 148/59
[2021-06-09 08:21] LABS: ALBUMIN 2.8 GM/DL (3.2-5.2); ALT/SGPT 388 U/L (12-78); BILIRUBIN,TOTAL 2.6 MG/DL (0.2-1.0); BLOOD UREA NITROGEN 9 MG/DL (7-18); CALCIUM LEVEL 8.2 MG/DL (8.8-10.2); CARBON DIOXIDE LEVEL 26 MEQ/L (21-32); CHLORIDE LEVEL 107 MEQ/L (98-107); CREATININE FOR GFR 0.66 MG/DL (0.70-1.30); GLOMERULAR FILTRATION RATE > 60.0 (>35); GLUCOSE, FASTING 186 MG/DL (70-100); POTASSIUM SERUM 4.1 MEQ/L (3.5-5.1); SODIUM LEVEL 139 MEQ/L (136-145)
[2021-06-09 08:41] VITALS: BP 149/60
[2021-06-09] MEDS ORDERED: OMEP-218 PO (09:21)
[2021-06-09] MEDS ORDERED: AUGM875T28 PO (09:21)
[2021-06-09] MEDS: ANEXSIA, NORCO 7.5MG/325MG TABLET(HYDROCODONE/APAP) PO PRN (10:55)
--- NOTE | 2021-06-09 11:48 | DS.PDOC ---
Discharge Summary General Date of Admission Jun 08, 2021 at 01:03 Date of Discharge 06/09/2021 Discharge Summary PROCEDURES PERFORMED DURING STAY: ERCP with stenting on 06/08/[address] Siddiqui ADMITTING DIAGNOSES / DISCHARGE DIAGNOSES: s/p Cholestasis - likely 2/2 extrahepatic etiology 2/2 suspected pancreatic mass Pancreatic Mass HTN urgency BPH DLP Carotid artery disease / Chronic CAD s/p Stent Chronic lower back pain DVT prophylaxis COMPLICATIONS/CHIEF COMPLAINT: Abnormal labs HISTORY OF PRESENT ILLNESS: Patient is an 81-year-old male with a PMHx with a PMHx of Paroxsymal A. fib (s/p Ablation), CAD s/p stent, Carotid artery disease, Pre-DM, DLP, BPH, Chronic back pain (s/p R lumbar laminectomy), GERD, who presented to the emergency room, sent in by primary care provider's office for abnormal lab work. Patient has reported light-colored stools and dark urine for about 1 month duration. Patient was admitted to the hospital service for further evaluation and treatment. Gastroenterology was called on consultation. Patient was seen and examined at the bedside. Denies any CP, SOB, palpitations, cough. Denies any N/V, abdominal pain, C/D. Reports his Jaundice is doing a lot better. HOSPITAL COURSE: s/p Cholestasis - likely 2/2 extrahepatic etiology 2/2 suspected pancreatic mass - No abdominal pain, N/V - Physical without tenderness / Improvement of jaundice - LFTs improving - Imaging noted above - s/p ERCP with stenting on 06/08/2021 - Dr. Siddiqui; GI on consultation - Will have outpatient follow up with PCP and GI within 7 days for cytology Pancreatic Mass - Family history of Pancreatic cancer (of mother) - Imaging noted above - ERCP brushings sent for cytology; remains pending - Patient will likely require EUS for Biopsy if cytology is unrevealing - Will have outpatient follow up with GI within 7 days - Will have outpatient follow up with Oncology; patient notes that he will be seeking referral to Oncology in [place] HTN urgency - BP appears well controlled - s/p Amlodipine, Captopril - c/w Metoprolol BPH - c/w Tamsulosin DLP - c/w Atorvastatin Carotid artery disease / Chronic CAD s/p Stent - c/w ASA & Atorvastatin Chronic lower back pain - c/w [place] DVT prophylaxis - c/w TEDs/Sequentials DISCHARGE MEDICATIONS: Please see below. ALLERGIES: Please see below. PHYSICAL EXAMINATION ON DISCHARGE: Vitals (See below) General: Sitting up in bed, appears comfortable, no acute distress, AAOx3 HEENT: NC, AT CVS: +S1S2 Lungs: There appears to be fair air entry bilaterally, no rhonchi / rales / wheezing Abdomen: Soft, non-distended, non-tender Extremities: No evidence of edema, - Calf tenderness LABORATORY DATA: Please see below. IMAGING: CT abdomen / pelvis 06/07: 1. Distention of the biliary tree and main pancreatic duct with abrupt cut off at approximately the same point with suspicion of a 2 cm pancreatic head mass which is viewed with suspicion for malignancy. There are slightly prominent peripancreatic nodes which may reflect early metastasis. 2. Mild cardiomegaly. 3. Coarse calcifications of the pancreas suggesting previous pancreatitis. Gallbladder US 06/07: Dilated intrahepatic and extrahepatic biliary ducts. The common duct measures 12 mm in diameter. Given symptomatology, consider MRCP for further evaluation of the common duct and possible common duct obstruction. The pancreas is obscured by bowel gas. ACTIVITY: [As tolerated]. DISCHARGE PLAN: Follow up with PCP, GI and Oncology within 7 days Remain compliant with treatment plan and medications Return to the ER if you experience any problems DISPOSITION: Home, Self-Care. DISCHARGE CONDITION: [Stable]. TIME SPENT ON DISCHARGE: 35 minutes. Vital Signs/I&Os Vital Signs Date Time Temp Pulse Resp B/P (MAP) Pulse Ox O2 Delivery O2 Flow Rate FiO2 06/09/21 11:25 18 06/09/21 08:41 98.0 56 149/60 (89) 99 Room Air 06/08/21 16:05 2.0 I&O- Last 24 Hours up to 6 AM 06/09/21 06:00 Intake Total 3880 ml Output Total 400 ml Balance 3480 ml Laboratory Data Labs 24H Laboratory Tests 2 06/08/21 11:47: Bedside Glucose (Misc Panel) 104 06/09/21 07:09: Nucleated Red Blood Cells % (auto) 0.0, Anion Gap 6L, Glomerular Filtration Rate > 60.0, Calcium Level 8.2L, Total Bilirubin 2.6#H, Aspartate Amino Transf (AST/SGOT) 340H, Alanine Aminotransferase (ALT/SGPT) 388H, Alkaline Phosphatase 1048H, Total Protein 6.0L, Albumin 2.8L, Albumin/Globulin Ratio 0.9 CBC/BMP Laboratory Tests 06/09/21 07:09 FSBS Laboratory Tests Test 06/08/21 11:47 Range/Units Bedside Glucose (Misc Panel) 104 83-110 MG/DL Discharge Medications Scheduled Amoxicillin/Potassium Clav (Augmentin 875-125 Tablet) 1 Each Tablet, 1 TAB PO BID Aspirin (Aspirin EC) 81 Mg Tablet.dr, 81 MG PO QHS, (Reported) Atorvastatin Calcium (Atorvastatin Calcium) 40 Mg Tablet, 40 MG PO QHS, (Reported) Glucosa Bui 2Kcl/Chondroitin Bui (Glucosamine & Chondroitin Cap) 1 Each Capsule, 3 CAP PO QHS, (Reported) Metoprolol Succinate (Metoprolol Succinate) 25 Mg Tab.er.24h, 25 MG PO QHS, (Reported) Omeprazole (Omeprazole) 20 Mg Capsule.dr, 40 MG PO DAILY Tamsulosin HCl (Flomax) 0.4 Mg Capsule, 0.8 MG PO QHS, (Reported) Scheduled PRN Hydrocodone/Acetaminophen (Hydrocodone-Acetamin 10-325 mg) 1 Each Tablet, 1 TAB PO Q4H PRN for PAIN LEVEL 6-10, (Reported) Allergies Coded Allergies: ciprofloxacin (Verified Allergy, Unknown, 06/07/21) clindamycin (Verified Allergy, Unknown, 06/07/21) JAIME RANGEL MD Jun 09, 2021 11:48
== END 2021-06-09 11:27 | disposition home or self-care (01) | DRG 438 ==
LOC: M ED 20:28 → M ED INP 06-08 01:03 → M PCU 06-08 02:45 → M MS5PR 06-09 08:13
PROVIDERS: ADMIT Internal Medicine; ATTEND Internal Medicine
PROC: 0F798DZ Dilation of Common Bile Duct with Intraluminal Device, Via Natural or Artificial Opening Endoscopic (ICD-10-PCS; principal; 2021-06-08 14:00)
DX: K86.9 Disease of pancreas, unspecified (principal); K83.1 Obstruction of bile duct; K82.0 Obstruction of gallbladder; I16.0 Hypertensive urgency; I25.10 Atherosclerotic heart disease of native coronary artery without angina pectoris; Z95.2 Presence of prosthetic heart valve; N40.0 Benign prostatic hyperplasia without lower urinary tract symptoms; I48.0 Paroxysmal atrial fibrillation; K21.9 Gastro-esophageal reflux disease without esophagitis; Z79.82 Long term (current) use of aspirin; Z79.899 Other long term (current) drug therapy; Z88.8 Allergy status to other drugs, medicaments and biological substances; Z96.642 Presence of left artificial hip joint

== ENCOUNTER → 2022-03-27 | Outpatient (REF) | payer MEDICARE ==
[~2022-03-27] MED LIST changes: +ASPI-161 PO; +ATOR40TA75 PO; +AUGM875T28 PO; +DULO1CAP4; +FINA5TAB2; +GLUC500C37 PO; +HYDR-4517; +HYDR-4517 PO; +METO1TAB32 PO; +OMEP-173 PO; +POTA-151 PO; +TADA20TA; +TORS20TA2
[2022-03-27 14:07] LABS: APPEARANCE, URINE CLOUDY (CLEAR); BACTERIA, URINE AUTO 2+ (NEGATIVE); BILIRUBIN, URINE AUTO NEGATIVE (NEGATIVE); BLOOD, URINE BLOOD 1+ (NEGATIVE); COLOR, URINE YELLOW (YELLOW); GLUCOSE, URINE (UA) AUTO NEGATIVE (NEGATIVE); KETONE, URINE AUTO NEGATIVE (NEGATIVE); LEUKOCYTE ESTERASE, URINE AUTO 3+ (NEGATIVE); MUCUS, URINE SMALL (NEGATIVE); NITRITE, URINE AUTO NEGATIVE (NEGATIVE); PROTEIN, URINE AUTO 1+ mg/dL (NEGATIVE); RBC, URINE AUTO 42 /HPF (0-3); SPECIFIC GRAVITY URINE AUTO 1.017 (1.002-1.035); SQUAMOUS EPITHELIAL CELL UR AU 0 /HPF (0-6); UROBILINOGEN, URINE AUTO 0.2 mg/dL (0.0-2.0); WBC, URINE AUTO TNTC /HPF (0-3)
== END ==
LOC: M SFHCPLAZ 13:04
PROVIDERS: ATTEND Family Medicine
DX: R39.198 Other difficulties with micturition (principal); R35.0 Frequency of micturition

== ENCOUNTER 2022-03-28 14:43 | Emergency (ER) | payer MEDICARE ==
[~2022-03-28 14:43] MED LIST changes: -DULO1CAP4; -FINA5TAB2; -POTA-151 PO; -TORS20TA2
[2022-03-28 15:11] VITALS: BP 121/57
[2022-03-28] MEDS ORDERED: NS 500 ML IV ONE (15:40)
[2022-03-28] MEDS ORDERED: cefTRIAXone SOD 1 GM in D5W MINI-BAG PLUS 50 ML IV ONE (15:45)
[2022-03-28 16:48] LABS: BASO % 0.2 % (0.0-1.0); EOS # 0.1 10^3/uL (0.0-0.5); EOS % 0.6 % (0.0-3.0); HEMATOCRIT 35.6 % (42.0-52.0); HEMOGLOBIN 11.6 g/dl (13.5-17.5); LYMPH # 0.9 10^3/uL (1.5-5.0); LYMPH % 11.1 % (24.0-44.0); MEAN CORPUSCULAR HGB CONC 32.6 g/dl (32.0-36.5); MEAN CORPUSCULAR VOLUME 101.4 fl (80.0-96.0); MONO # 0.5 10^3/uL (0.0-0.8); MONO % 5.4 % (2.0-8.0); NEUTROPHILS # 6.8 10^3/uL (1.5-8.5); NEUTROPHILS % 82.3 % (36.0-66.0); PLATELET COUNT, AUTOMATED 145 10^3/uL (150-450); RED BLOOD COUNT 3.51 10^6/uL (4.30-6.10); WHITE BLOOD COUNT 8.3 10^3/uL (4.0-10.0)
[2022-03-28 16:55] LABS: BLOOD UREA NITROGEN 11 MG/DL (7-18); CARBON DIOXIDE LEVEL 30 MEQ/L (21-32); CHLORIDE LEVEL 108 MEQ/L (98-107); CREATININE FOR GFR 0.67 MG/DL (0.70-1.30); GLOMERULAR FILTRATION RATE > 60.0 (>35); GLUCOSE, FASTING 107 MG/DL (70-100); POTASSIUM SERUM 3.1 MEQ/L (3.5-5.1); SODIUM LEVEL 144 MEQ/L (136-145); THYROID STIMULATING HORMONE 0.949 uIU/ML (0.358-3.740)
[2022-03-28] MEDS ORDERED: POTASSIUM CHLORIDE 10MEQ SR TABLET PO ONE (17:30)
[2022-03-28 18:53] VITALS: O2SAT 94
[2022-03-28] MEDS ORDERED: ANEXSIA, NORCO 7.5MG/325MG TABLET(HYDROCODONE/APAP) PO ONE (19:00)
== END 2022-03-28 20:25 | disposition home or self-care (01) ==
LOC: M ED 14:43 → EDBD 14:43 → M ED 20:25
DX: N39.0 Urinary tract infection, site not specified (principal); R53.1 Weakness; I10 Essential (primary) hypertension; E78.5 Hyperlipidemia, unspecified; K21.9 Gastro-esophageal reflux disease without esophagitis; N40.0 Benign prostatic hyperplasia without lower urinary tract symptoms; Z95.5 Presence of coronary angioplasty implant and graft; Z79.899 Other long term (current) drug therapy; Z79.82 Long term (current) use of aspirin; Z88.1 Allergy status to other antibiotic agents
CPT/HCPCS: 71045; 80048; 83605; 84443; 85025; 87040; 87077; 87186; 93005; 93041; 94760; 96365; 99284; J0696

== ENCOUNTER 2022-04-04 14:01 | Emergency (ER) | payer MEDICARE ==
[~2022-04-04] VITALS: Ht 193 cm; Wt 73.6 kg
[2022-04-04] MEDS ORDERED: FINA5TAB2 (14:23)
[2022-04-04] MEDS ORDERED: DULO1CAP4 (14:23)
[2022-04-04] MEDS ORDERED: TORS20TA2 (14:23)
[2022-04-04] MEDS ORDERED: NS 500 ML IV ONE ×2 (14:45→17:35)
[2022-04-04 16:30] LABS: BASO % 0.5 % (0.0-1.0); EOS # 0.1 10^3/uL (0.0-0.5); EOS % 1.9 % (0.0-3.0); HEMATOCRIT 37.4 % (42.0-52.0); HEMOGLOBIN 12.3 g/dl (13.5-17.5); LYMPH # 1.9 10^3/uL (1.5-5.0); LYMPH % 29.7 % (24.0-44.0); MEAN CORPUSCULAR HEMOGLOBIN 33.5 pg (27.0-33.0); MEAN CORPUSCULAR HGB CONC 32.9 g/dl (32.0-36.5); MEAN CORPUSCULAR VOLUME 101.9 fl (80.0-96.0); MONO # 0.5 10^3/uL (0.0-0.8); MONO % 7.9 % (2.0-8.0); NEUTROPHILS # 3.7 10^3/uL (1.5-8.5); NEUTROPHILS % 59.7 % (36.0-66.0); PLATELET COUNT, AUTOMATED 234 10^3/uL (150-450); RED BLOOD COUNT 3.67 10^6/uL (4.30-6.10); WHITE BLOOD COUNT 6.2 10^3/uL (4.0-10.0)
[2022-04-04 16:47] LABS: INR 0.98; PROTHROMBIN TIME 13.4 SECONDS (12.7-14.5)
[2022-04-04 16:48] LABS: PARTIAL THROMBOPLASTIN TIME 32.7 SECONDS (25.9-37.0)
[2022-04-04 16:56] LABS: ALBUMIN 2.5 GM/DL (3.2-5.2); ALT/SGPT 23 U/L (12-78); BILIRUBIN,DIRECT 0.1 MG/DL (0.0-0.2); BILIRUBIN,TOTAL 0.2 MG/DL (0.2-1.0); BLOOD UREA NITROGEN 13 MG/DL (7-18); CALCIUM LEVEL 7.8 MG/DL (8.8-10.2); CARBON DIOXIDE LEVEL 30 MEQ/L (21-32); CHLORIDE LEVEL 104 MEQ/L (98-107); CREATININE FOR GFR 0.66 MG/DL (0.70-1.30); GLOMERULAR FILTRATION RATE > 60.0 (>35); GLUCOSE, FASTING 84 MG/DL (70-100); LIPASE 20 U/L (73-393); MAGNESIUM LEVEL 2.1 MG/DL (1.8-2.4); POTASSIUM SERUM 3.2 MEQ/L (3.5-5.1); PREALBUMIN 12.8 MG/DL (20.0-40.0); SODIUM LEVEL 138 MEQ/L (136-145); TOTAL PROTEIN 5.6 GM/DL (6.4-8.2)
[2022-04-04] MEDS ORDERED: POTASSIUM CHLORIDE 10MEQ SR TABLET PO ONE (17:20)
[2022-04-04 18:45] VITALS: BP 169/74
[2022-04-04] MEDS ORDERED: POTA-151 PO (18:53)
== END 2022-04-04 19:40 | disposition home or self-care (01) ==
LOC: M ED 14:01
DX: E87.6 Hypokalemia (principal); R53.1 Weakness; I48.91 Unspecified atrial fibrillation; I25.10 Atherosclerotic heart disease of native coronary artery without angina pectoris; K21.9 Gastro-esophageal reflux disease without esophagitis; I10 Essential (primary) hypertension; E78.5 Hyperlipidemia, unspecified; N40.0 Benign prostatic hyperplasia without lower urinary tract symptoms; Z95.5 Presence of coronary angioplasty implant and graft; Z87.891 Personal history of nicotine dependence; Z88.1 Allergy status to other antibiotic agents; Z79.899 Other long term (current) drug therapy

== ENCOUNTER → 2022-06-24 | Outpatient (REF) | payer MEDICARE ==
[~2022-06-24] MED LIST changes: +DULO1CAP4; +FINA5TAB2; +POTA-151 PO; +TORS20TA2
[2022-06-24 17:19] LABS: APPEARANCE, URINE MANUAL CLEAR (CLEAR); COLOR, URINE MANUAL YELLOW (YELLOW)
[2022-06-24 17:20] LABS: BILIRUBIN, URINE MANUAL NEGATIVE (NEGATIVE); BLOOD URINE MANUAL NEGATIVE (NEGATIVE); GLUCOSE, URINE (UA) MANUAL NEGATIVE (NEGATIVE); KETONE, URINE MANUAL NEGATIVE (NEGATIVE); LEUKOCYTE ESTERASE, URINE MAN NEGATIVE (NEGATIVE); NITRITE, URINE MANUAL NEGATIVE (NEGATIVE); PROTEIN, URINE MANUAL NEGATIVE (NEGATIVE); SPECIFIC GRAVITY,URINE MANUAL 1.025 (1.002-1.035); UROBILINOGEN, URINE MANUAL NORMAL (NORMAL)
== END ==
LOC: M SMT 16:41
PROVIDERS: ATTEND Nurse Practitioner Women's Health
DX: R30.0 Dysuria (principal)

== ENCOUNTER → 2022-07-08 | Outpatient (REF) | payer MEDICARE ==
[2022-07-08 19:54] LABS: APPEARANCE, URINE MANUAL CLEAR (CLEAR); COLOR, URINE MANUAL YELLOW (YELLOW)
[2022-07-08 19:55] LABS: BILIRUBIN, URINE MANUAL NEGATIVE (NEGATIVE); BLOOD URINE MANUAL NEGATIVE (NEGATIVE); GLUCOSE, URINE (UA) MANUAL NEGATIVE (NEGATIVE); KETONE, URINE MANUAL NEGATIVE (NEGATIVE); LEUKOCYTE ESTERASE, URINE MAN NEGATIVE (NEGATIVE); NITRITE, URINE MANUAL NEGATIVE (NEGATIVE); PROTEIN, URINE MANUAL NEGATIVE (NEGATIVE); SPECIFIC GRAVITY,URINE MANUAL 1.015 (1.002-1.035); UROBILINOGEN, URINE MANUAL NORMAL (NORMAL)
== END ==
LOC: M SMT 16:39
PROVIDERS: ATTEND Urology
DX: R33.9 Retention of urine, unspecified (principal)

== ENCOUNTER → 2022-09-05 | Outpatient (REF) | payer MEDICARE ==
[2022-09-05 18:31] LABS: APPEARANCE, URINE MANUAL CLEAR (CLEAR); COLOR, URINE MANUAL YELLOW (YELLOW); SPECIFIC GRAVITY,URINE MANUAL 1.025 (1.002-1.035)
[2022-09-05 18:32] LABS: BILIRUBIN, URINE MANUAL NEGATIVE (NEGATIVE); BLOOD URINE MANUAL NEGATIVE (NEGATIVE); GLUCOSE, URINE (UA) MANUAL NEGATIVE (NEGATIVE); KETONE, URINE MANUAL NEGATIVE (NEGATIVE); LEUKOCYTE ESTERASE, URINE MAN NEGATIVE (NEGATIVE); NITRITE, URINE MANUAL NEGATIVE (NEGATIVE); PROTEIN, URINE MANUAL NEGATIVE (NEGATIVE); UROBILINOGEN, URINE MANUAL NORMAL (NORMAL)
== END ==
LOC: M SMT 17:38
PROVIDERS: ATTEND Physician Assistant
DX: R35.0 Frequency of micturition (principal)

== ENCOUNTER → 2023-06-03 | Outpatient (CLI) | payer MEDICARE ==
[2023-06-03 18:03] LABS: BASO # 0.1 10^3/uL (0.0-0.2); BASO % 0.9 % (0.0-1.0); EOS # 0.2 10^3/uL (0.0-0.5); EOS % 3.5 % (0.0-3.0); HEMATOCRIT 42.8 % (42.0-52.0); HEMOGLOBIN 13.6 g/dl (13.5-17.5); LYMPH # 1.7 10^3/uL (1.5-5.0); LYMPH % 30.8 % (24.0-44.0); MEAN CORPUSCULAR HEMOGLOBIN 31.3 pg (27.0-33.0); MEAN CORPUSCULAR HGB CONC 31.8 g/dl (32.0-36.5); MEAN CORPUSCULAR VOLUME 98.6 fl (80.0-96.0); MONO # 0.4 10^3/uL (0.0-0.8); MONO % 7.7 % (2.0-8.0); NEUTROPHILS # 3.1 10^3/uL (1.5-8.5); NEUTROPHILS % 56.7 % (36.0-66.0); PLATELET COUNT, AUTOMATED 212 10^3/uL (150-450); RED BLOOD COUNT 4.34 10^6/uL (4.30-6.10); WHITE BLOOD COUNT 5.5 10^3/uL (4.0-10.0)
[2023-06-03 18:41] LABS: C REACTIVE PROTEIN QUANTITATIV < 0.40 MG/DL (<1.0)
[2023-06-03 18:42] LABS: ALKALINE PHOSPHATASE 100 U/L (46-116); ALT/SGPT 30 U/L (7.0-40); AST/SGOT 16 U/L (<34); BILIRUBIN,TOTAL 0.5 MG/DL (0.3-1.2); BLOOD UREA NITROGEN 17 MG/DL (9-23); CALCIUM LEVEL 8.9 MG/DL (8.3-10.6); CARBON DIOXIDE LEVEL 30 MMOL/L (20-31); CHLORIDE LEVEL 101 MMOL/L (98-107); CREATININE FOR GFR 0.61 MG/DL (0.70-1.30); GLOMERULAR FILTRATION RATE > 60.0 (>35); GLUCOSE, FASTING 96 MG/DL (74-106); POTASSIUM SERUM 4.3 MMOL/L (3.5-5.1); SODIUM LEVEL 138 MMOL/L (136-145); TOTAL PROTEIN 6.5 G/DL (5.7-8.2)
[2023-06-03 18:58] LABS: CA19-9 TUMOR MARKER,CARBOHYDRA 9.2 U/ML (<35.0)
== END ==
LOC: M PLALAB 15:17
PROVIDERS: ATTEND Family Medicine
DX: R10.30 Lower abdominal pain, unspecified (principal); C25.9 Malignant neoplasm of pancreas, unspecified

== ENCOUNTER 2023-09-11 18:24 | Observation (INO) | payer MEDICARE ==
[~2023-09-11] VITALS: Ht 193 cm; Wt 67.0 kg
[~2023-09-11 18:24] MED LIST changes: -DULO1CAP4; +DULO1CAP4 PO
[2023-09-11 19:05] LABS: BASO % 0.6 % (0.0-1.0); EOS # 0.2 10^3/uL (0.0-0.5); EOS % 2.4 % (0.0-3.0); HEMATOCRIT 40.7 % (42.0-52.0); HEMOGLOBIN 13.3 g/dl (13.5-17.5); LYMPH % 27.6 % (24.0-44.0); MEAN CORPUSCULAR HEMOGLOBIN 32.1 pg (27.0-33.0); MEAN CORPUSCULAR HGB CONC 32.7 g/dl (32.0-36.5); MEAN CORPUSCULAR VOLUME 98.3 fl (80.0-96.0); MONO # 0.7 10^3/uL (0.0-0.8); MONO % 9.4 % (2.0-8.0); NEUTROPHILS # 4.3 10^3/uL (1.5-8.5); NEUTROPHILS % 59.7 % (36.0-66.0); PLATELET COUNT, AUTOMATED 268 10^3/uL (150-450); RED BLOOD COUNT 4.14 10^6/uL (4.30-6.10); WHITE BLOOD COUNT 7.2 10^3/uL (4.0-10.0)
[2023-09-11 19:57] LABS: BLOOD UREA NITROGEN 11 MG/DL (9-23); CALCIUM LEVEL 8.8 MG/DL (8.3-10.6); CARBON DIOXIDE LEVEL 29 MMOL/L (20-31); CHLORIDE LEVEL 106 MMOL/L (98-107); CREATININE FOR GFR 0.63 MG/DL (0.70-1.30); GLOMERULAR FILTRATION RATE > 60.0 (>35); GLUCOSE, FASTING 97 MG/DL (74-106); MAGNESIUM LEVEL 2.1 MG/DL (1.8-2.4); POTASSIUM SERUM 3.9 MMOL/L (3.5-5.1); SODIUM LEVEL 141 MMOL/L (136-145)
[2023-09-11 21:15] LABS: RSV AMPLIFICATION NEGATIVE (NEGATIVE)
[2023-09-11] MEDS ORDERED: MED REC IN PROGRESS XX SCH (21:35)
[2023-09-11] MEDS ORDERED: HOME MED LIST COMPLETE! XX SCH (22:40)
[2023-09-11 23:48] VITALS: BP 162/76; TEMP 97.9; O2SAT 97
[2023-09-12] MEDS: TAMSULOSIN 0.4 MG CAP PO SCH ×2 (00:06→19:33)
[2023-09-12] MEDS: ACETAMINOPHEN TAB 650MG DOSE (2X325MG) PO PRN ×6 (00:07→22:00)
[2023-09-12 05:25] VITALS: BP 110/53; TEMP 98.2; O2SAT 96
[2023-09-12] MEDS: HEPARIN SOD (PORCINE) 5000UNITS/ML 1ML VIAL/SYRINGE SC SCH ×3 (05:45→20:36)
[2023-09-12 06:03] LABS: HEMATOCRIT 35.1 % (42.0-52.0); HEMOGLOBIN 11.9 g/dl (13.5-17.5); MEAN CORPUSCULAR HEMOGLOBIN 32.7 pg (27.0-33.0); MEAN CORPUSCULAR HGB CONC 33.9 g/dl (32.0-36.5); MEAN CORPUSCULAR VOLUME 96.4 fl (80.0-96.0); PLATELET COUNT, AUTOMATED 220 10^3/uL (150-450); RED BLOOD COUNT 3.64 10^6/uL (4.30-6.10); WHITE BLOOD COUNT 6.5 10^3/uL (4.0-10.0)
[2023-09-12 06:22] LABS: ALBUMIN 3.1 G/DL (3.2-5.2); ALKALINE PHOSPHATASE 86 U/L (46-116); ALT/SGPT 11 U/L (7.0-40); AST/SGOT 12 U/L (<34); BILIRUBIN,TOTAL 0.4 MG/DL (0.3-1.2); BLOOD UREA NITROGEN 11 MG/DL (9-23); CALCIUM LEVEL 8.5 MG/DL (8.3-10.6); CARBON DIOXIDE LEVEL 27 MMOL/L (20-31); CHLORIDE LEVEL 106 MMOL/L (98-107); CREATININE FOR GFR 0.55 MG/DL (0.70-1.30); GLOMERULAR FILTRATION RATE > 60.0 (>35); GLUCOSE, FASTING 90 MG/DL (74-106); POTASSIUM SERUM 3.6 MMOL/L (3.5-5.1); SODIUM LEVEL 140 MMOL/L (136-145); TOTAL PROTEIN 5.5 G/DL (5.7-8.2)
[2023-09-12] MEDS: DULoxetine 20MG CAP (CYMBALTA) PO SCH (08:46)
[2023-09-12 14:00] VITALS: BP 115/58; TEMP 98.2; O2SAT 98
[2023-09-12] MEDS ORDERED: FLUZONE HIGH DOSE(65YR UP)QUAD/PF 240MCG/0.7ML SYRINGE IM.IMMUN ONE (16:00)
[2023-09-13] MEDS: HEPARIN SOD (PORCINE) 5000UNITS/ML 1ML VIAL/SYRINGE SC SCH ×3 (04:59→20:16)
[2023-09-13] MEDS: ACETAMINOPHEN TAB 650MG DOSE (2X325MG) PO PRN ×4 (05:00→22:19)
[2023-09-13 06:00] VITALS: BP 137/60; TEMP 98.1; O2SAT 97
[2023-09-13 06:18] VITALS: BP 137/60; TEMP 98.1; O2SAT 97
[2023-09-13] MEDS: DULoxetine 20MG CAP (CYMBALTA) PO SCH (07:53)
[2023-09-13] MEDS: FINASTERIDE 5MG TAB PO SCH (20:16)
[2023-09-13] MEDS: TAMSULOSIN 0.4 MG CAP PO SCH (20:16)
[2023-09-14] MEDS: HEPARIN SOD (PORCINE) 5000UNITS/ML 1ML VIAL/SYRINGE SC SCH ×3 (05:10→21:10)
[2023-09-14] MEDS: ACETAMINOPHEN TAB 650MG DOSE (2X325MG) PO PRN ×3 (05:19→19:19)
[2023-09-14 05:40] VITALS: BP 121/60; TEMP 98.1; O2SAT 95
[2023-09-14] MEDS: DULoxetine 20MG CAP (CYMBALTA) PO SCH (10:12)
[2023-09-14] MEDS: FINASTERIDE 5MG TAB PO SCH (21:10)
[2023-09-14] MEDS: TAMSULOSIN 0.4 MG CAP PO SCH (21:10)
[2023-09-15] MEDS: ACETAMINOPHEN TAB 650MG DOSE (2X325MG) PO PRN ×3 (00:18→09:48)
[2023-09-15 04:53] VITALS: BP 135/80; TEMP 98.1; O2SAT 96
[2023-09-15] MEDS: HEPARIN SOD (PORCINE) 5000UNITS/ML 1ML VIAL/SYRINGE SC SCH ×2 (05:02→16:01)
[2023-09-15] MEDS: DULoxetine 20MG CAP (CYMBALTA) PO SCH (08:29)
[2023-09-15] MEDS ORDERED: FINA5TAB2 PO (10:55)
[2023-09-15] MEDS: TAMSULOSIN 0.4 MG CAP PO SCH (19:36)
[2023-09-15] MEDS: FINASTERIDE 5MG TAB PO SCH (19:36)
[2023-09-17] MEDS ORDERED: DULO1CAP4 PO (09:17)
== END 2023-09-15 19:46 | disposition home or self-care (01) ==
LOC: M ED 18:24 → EDBD 18:24 → INTOOBSV 20:54 → M ED INP 20:54 → M MSPAV 23:48
PROVIDERS: ADMIT Internal Medicine; ATTEND General Practice
DX: R53.1 Weakness (principal); R03.0 Elevated blood-pressure reading, without diagnosis of hypertension; E86.9 Volume depletion, unspecified; R35.0 Frequency of micturition; R33.9 Retention of urine, unspecified; N40.1 Benign prostatic hyperplasia with lower urinary tract symptoms; R19.7 Diarrhea, unspecified; N32.89 Other specified disorders of bladder; E78.5 Hyperlipidemia, unspecified; C25.0 Malignant neoplasm of head of pancreas; Z90.411 Acquired partial absence of pancreas; Z88.1 Allergy status to other antibiotic agents; Z23 Encounter for immunization
CPT/HCPCS: 36415; 51702; 70450; 74176; 80047; 80048; 80053; 81001; 83605; 83735; 85025; 85027; 87040; 87631; 90662; 96372; 97116; 97161; 97165; 97530; 99285; G0008; G0378

== ENCOUNTER 2023-09-20 15:21 | Observation (INO) | payer MEDICARE ==
[~2023-09-20] VITALS: Ht 190.5 cm; Wt 72.7 kg
[~2023-09-20 15:21] MED LIST changes: +FINA5TAB2 PO
[2023-09-20 16:14] LABS: HEMATOCRIT 36.4 % (42.0-52.0); HEMOGLOBIN 11.8 g/dl (13.5-17.5); MEAN CORPUSCULAR HEMOGLOBIN 32.7 pg (27.0-33.0); MEAN CORPUSCULAR HGB CONC 32.4 g/dl (32.0-36.5); MEAN CORPUSCULAR VOLUME 100.8 fl (80.0-96.0); PLATELET COUNT, AUTOMATED 233 10^3/uL (150-450); RED BLOOD COUNT 3.61 10^6/uL (4.30-6.10); WHITE BLOOD COUNT 10.7 10^3/uL (4.0-10.0)
[2023-09-20 16:40] LABS: BLOOD UREA NITROGEN 12 MG/DL (9-23); CALCIUM LEVEL 8.1 MG/DL (8.3-10.6); CARBON DIOXIDE LEVEL 30 MMOL/L (20-31); CHLORIDE LEVEL 105 MMOL/L (98-107); CREATININE FOR GFR 0.61 MG/DL (0.70-1.30); GLOMERULAR FILTRATION RATE > 60.0 (>35); GLUCOSE, FASTING 136 MG/DL (74-106); POTASSIUM SERUM 4.3 MMOL/L (3.5-5.1); SODIUM LEVEL 141 MMOL/L (136-145)
[2023-09-20] MEDS ORDERED: MED REC IN PROGRESS XX SCH (18:00)
[2023-09-20] MEDS ORDERED: NS 1,000 ML IV ONE (18:30)
[2023-09-20] MEDS ORDERED: FINA5TAB2 PO (18:56)
[2023-09-20] MEDS ORDERED: HOME MED LIST COMPLETE! XX SCH (19:00)
[2023-09-20 20:34] VITALS: BP 178/78; TEMP 99; O2SAT 98
[2023-09-20] MEDS: LISINOPRIL *2.5 MG* TAB PO SCH (21:20)
[2023-09-20 22:25] VITALS: BP 154/62
[2023-09-21] MEDS ORDERED: HYDROcodone/APAP LIQUID 7.5-325MG 15ML UDC (LORTAB ELIXIR) PO PRN (01:50)
[2023-09-21 04:41] VITALS: BP 126/60; TEMP 99.8; O2SAT 96
[2023-09-21 05:34] LABS: HEMATOCRIT 34.9 % (42.0-52.0); HEMOGLOBIN 11.7 g/dl (13.5-17.5); MEAN CORPUSCULAR HEMOGLOBIN 33.1 pg (27.0-33.0); MEAN CORPUSCULAR HGB CONC 33.5 g/dl (32.0-36.5); MEAN CORPUSCULAR VOLUME 98.6 fl (80.0-96.0); PLATELET COUNT, AUTOMATED 238 10^3/uL (150-450); RED BLOOD COUNT 3.54 10^6/uL (4.30-6.10); WHITE BLOOD COUNT 13.2 10^3/uL (4.0-10.0)
[2023-09-21 06:01] LABS: BLOOD UREA NITROGEN 11 MG/DL (9-23); CALCIUM LEVEL 8.4 MG/DL (8.3-10.6); CARBON DIOXIDE LEVEL 24 MMOL/L (20-31); CHLORIDE LEVEL 103 MMOL/L (98-107); CREATININE FOR GFR 0.53 MG/DL (0.70-1.30); GLOMERULAR FILTRATION RATE > 60.0 (>35); GLUCOSE, FASTING 123 MG/DL (74-106); POTASSIUM SERUM 4.3 MMOL/L (3.5-5.1); SODIUM LEVEL 135 MMOL/L (136-145)
[2023-09-21 08:12] LABS: PROCALCITONIN <0.04 ng/ml
[2023-09-21] MEDS: LISINOPRIL *2.5 MG* TAB PO SCH (08:18)
[2023-09-21] MEDS: ENOXAPARIN 40MG/0.4ML SYRINGE (J1650 PER 10MG) SC SCH (08:18)
[2023-09-21 11:42] LABS: FOLATE > 24.0 NG/ML (>5.4); VITAMIN B12 LEVEL 579 PG/ML (211-911)
[2023-09-21] MEDS: NORCO, ANEXSIA 5/325MG TABLET (HYDROcodone/ACETAMINOPHEN) PO PRN ×3 (13:35→22:15)
[2023-09-21] MEDS: DULoxetine 20MG CAP (CYMBALTA) PO SCH (13:50)
[2023-09-21 14:00] VITALS: BP 123/52; TEMP 98.2; O2SAT 98
[2023-09-21 19:30] VITALS: BP 118/57; TEMP 98.9; O2SAT 99
[2023-09-21] MEDS: TAMSULOSIN 0.4 MG CAP PO SCH (20:27)
[2023-09-21] MEDS: FINASTERIDE 5MG TAB PO SCH (20:27)
[2023-09-22] MEDS: RAMELTEON 8 MG TAB (ROZEREM) PO PRN (00:46)
[2023-09-22] MEDS: NORCO, ANEXSIA 5/325MG TABLET (HYDROcodone/ACETAMINOPHEN) PO PRN ×3 (03:27→17:35)
[2023-09-22 04:56] VITALS: BP 111/51; TEMP 98.3; O2SAT 98
[2023-09-22] MEDS: DULoxetine 20MG CAP (CYMBALTA) PO SCH (08:51)
[2023-09-22 08:53] VITALS: BP 108/51
[2023-09-22] MEDS: LISINOPRIL *2.5 MG* TAB PO SCH (08:53)
[2023-09-22] MEDS: ENOXAPARIN 40MG/0.4ML SYRINGE (J1650 PER 10MG) SC SCH (08:54)
[2023-09-22 11:52] LABS: FOLATE 15.12 NG/ML (>5.4)
[2023-09-22 14:00] VITALS: BP 128/60; TEMP 98.2; O2SAT 98
[2023-09-22 20:03] VITALS: BP 138/63; TEMP 97.7; O2SAT 97
[2023-09-22] MEDS: FINASTERIDE 5MG TAB PO SCH (21:07)
[2023-09-22] MEDS: TAMSULOSIN 0.4 MG CAP PO SCH (21:07)
[2023-09-23] MEDS: RAMELTEON 8 MG TAB (ROZEREM) PO PRN (01:41)
[2023-09-23] MEDS: NORCO, ANEXSIA 5/325MG TABLET (HYDROcodone/ACETAMINOPHEN) PO PRN ×3 (01:42→12:52)
[2023-09-23 05:30] VITALS: BP 139/64; TEMP 97.9; O2SAT 98
[2023-09-23] MEDS: DULoxetine 20MG CAP (CYMBALTA) PO SCH (08:21)
[2023-09-23] MEDS: ENOXAPARIN 40MG/0.4ML SYRINGE (J1650 PER 10MG) SC SCH (08:22)
[2023-09-23] MEDS ORDERED: MEDR4TAB PO (08:35)
[2023-09-23] MEDS ORDERED: OMEP40CA4 PO (10:34)
[2023-09-23 14:00] VITALS: BP 123/58; TEMP 98.1; O2SAT 98
== END 2023-09-23 14:30 | disposition home or self-care (01) ==
LOC: EDBD 15:21 → M ED 15:21 → M ED INP 18:39 → ENRESERV 19:39 → M MSPAV 20:45
PROVIDERS: ADMIT Internal Medicine; ATTEND Internal Medicine
DX: R53.1 Weakness (principal); M48.061 Spinal stenosis, lumbar region without neurogenic claudication; Z98.1 Arthrodesis status; M54.9 Dorsalgia, unspecified; G89.29 Other chronic pain; N40.1 Benign prostatic hyperplasia with lower urinary tract symptoms; D53.9 Nutritional anemia, unspecified; D72.828 Other elevated white blood cell count; Z85.07 Personal history of malignant neoplasm of pancreas; Z90.410 Acquired total absence of pancreas; Z92.21 Personal history of antineoplastic chemotherapy; I48.0 Paroxysmal atrial fibrillation; I25.10 Atherosclerotic heart disease of native coronary artery without angina pectoris; Z95.1 Presence of aortocoronary bypass graft; Z95.5 Presence of coronary angioplasty implant and graft; I77.1 Stricture of artery; I10 Essential (primary) hypertension; K21.9 Gastro-esophageal reflux disease without esophagitis; E78.5 Hyperlipidemia, unspecified; Z88.1 Allergy status to other antibiotic agents; Z79.899 Other long term (current) drug therapy; Z80.0 Family history of malignant neoplasm of digestive organs
CPT/HCPCS: 36415; 71045; 80048; 82607; 82746; 84145; 85027; 87635; 93005; 96360; 96372; 97110; 97161; 97165; 97530; 97535; 99285; G0378; J1650

== ENCOUNTER → 2024-04-08 | Outpatient (REF) | payer MEDICARE ==
[~2024-04-08] MED LIST changes: -ASPI-161 PO; +ASPI-615 PO; +MEDR4TAB PO; +OMEP40CA4 PO
[2024-04-08 17:43] LABS: APPEARANCE, URINE HAZY (CLEAR); BACTERIA, URINE AUTO NEGATIVE (NEGATIVE); BILIRUBIN, URINE AUTO NEGATIVE (NEGATIVE); BLOOD, URINE BLOOD NEGATIVE (NEGATIVE); COLOR, URINE YELLOW (YELLOW); GLUCOSE, URINE (UA) AUTO NEGATIVE (NEGATIVE); KETONE, URINE AUTO TRACE mg/dL (NEGATIVE); LEUKOCYTE ESTERASE, URINE AUTO 1+ (NEGATIVE); MUCUS, URINE SMALL (NEGATIVE); NITRITE, URINE AUTO NEGATIVE (NEGATIVE); PROTEIN, URINE AUTO NEGATIVE (NEGATIVE); RBC, URINE AUTO 5 /HPF (0-3); SPECIFIC GRAVITY URINE AUTO 1.017 (1.002-1.035); SQUAMOUS EPITHELIAL CELL UR AU 0 /HPF (0-6); UROBILINOGEN, URINE AUTO 0.2 mg/dL (0.0-2.0); WBC, URINE AUTO 9 /HPF (0-3)
== END ==
LOC: M SMT 17:12
PROVIDERS: ATTEND Physician Assistant
DX: R30.0 Dysuria (principal)

== ENCOUNTER 2024-04-22 16:05 | Inpatient (IN) | payer MEDICARE ==
[~2024-04-22] VITALS: Ht 193 cm; Wt 74.0 kg
[2024-04-22] MEDS ORDERED: CREO3600 PO (16:53)
[2024-04-22] MEDS ORDERED: OXYC15TA66 PO (16:53)
[2024-04-22 17:03] LABS: BASO % 0.4 % (0.0-1.0); EOS # 0.2 10^3/uL (0.0-0.5); EOS % 2.8 % (0.0-3.0); HEMATOCRIT 41.8 % (42.0-52.0); HEMOGLOBIN 13.6 g/dl (13.5-17.5); LYMPH # 1.7 10^3/uL (1.5-5.0); LYMPH % 19.8 % (24.0-44.0); MEAN CORPUSCULAR HEMOGLOBIN 32.3 pg (27.0-33.0); MEAN CORPUSCULAR HGB CONC 32.5 g/dl (32.0-36.5); MEAN CORPUSCULAR VOLUME 99.3 fl (80.0-96.0); MONO # 0.6 10^3/uL (0.0-0.8); MONO % 7.6 % (2.0-8.0); NEUTROPHILS # 5.8 10^3/uL (1.5-8.5); PLATELET COUNT, AUTOMATED 197 10^3/uL (150-450); RED BLOOD COUNT 4.21 10^6/uL (4.30-6.10); WHITE BLOOD COUNT 8.4 10^3/uL (4.0-10.0)
[2024-04-22 17:27] LABS: ALBUMIN 3.2 G/DL (3.2-5.2); ALKALINE PHOSPHATASE 113 U/L (46-116); ALT/SGPT 21 U/L (7.0-40); AST/SGOT 15 U/L (<34); BILIRUBIN,TOTAL 0.3 MG/DL (0.3-1.2); BLOOD UREA NITROGEN 17 MG/DL (9-23); CALCIUM LEVEL 8.7 MG/DL (8.3-10.6); CARBON DIOXIDE LEVEL 26 MMOL/L (20-31); CHLORIDE LEVEL 107 MMOL/L (98-107); GLOMERULAR FILTRATION RATE > 60.0 (>35); GLUCOSE, FASTING 109 MG/DL (74-106); MAGNESIUM LEVEL 1.8 MG/DL (1.8-2.4); POTASSIUM SERUM 3.5 MMOL/L (3.5-5.1); SODIUM LEVEL 141 MMOL/L (136-145)
[2024-04-22 17:29] LABS: FREE T4 0.96 NG/DL (0.89-1.76)
[2024-04-22] MEDS ORDERED: CREO3000 PO (19:36)
[2024-04-22] MEDS ORDERED: HOME MED LIST COMPLETE! XX SCH (19:40)
[2024-04-22] MEDS: FINASTERIDE 5MG TAB PO SCH (21:15)
[2024-04-22] MEDS: oxyCODONE 15MG CR TAB PO SCH (21:15)
[2024-04-23 00:11] VITALS: BP 148/80; TEMP 97.5; O2SAT 98
[2024-04-23 04:10] VITALS: BP 133/59; TEMP 97.3; O2SAT 96
[2024-04-23 06:23] LABS: HEMOGLOBIN 12.4 g/dl (13.5-17.5); MEAN CORPUSCULAR HEMOGLOBIN 32.1 pg (27.0-33.0); MEAN CORPUSCULAR HGB CONC 32.6 g/dl (32.0-36.5); MEAN CORPUSCULAR VOLUME 98.4 fl (80.0-96.0); PLATELET COUNT, AUTOMATED 185 10^3/uL (150-450); RED BLOOD COUNT 3.86 10^6/uL (4.30-6.10); WHITE BLOOD COUNT 7.1 10^3/uL (4.0-10.0)
[2024-04-23 07:08] LABS: ALBUMIN 2.8 G/DL (3.2-5.2); ALKALINE PHOSPHATASE 96 U/L (46-116); ALT/SGPT 16 U/L (7.0-40); AST/SGOT 9 U/L (<34); BILIRUBIN,TOTAL 0.2 MG/DL (0.3-1.2); BLOOD UREA NITROGEN 15 MG/DL (9-23); CALCIUM LEVEL 8.6 MG/DL (8.3-10.6); CARBON DIOXIDE LEVEL 28 MMOL/L (20-31); CHLORIDE LEVEL 108 MMOL/L (98-107); CREATININE FOR GFR 0.69 MG/DL (0.70-1.30); GLOMERULAR FILTRATION RATE > 60.0 (>35); GLUCOSE, FASTING 86 MG/DL (74-106); POTASSIUM SERUM 3.8 MMOL/L (3.5-5.1); SODIUM LEVEL 141 MMOL/L (136-145); TOTAL PROTEIN 5.2 G/DL (5.7-8.2)
[2024-04-23] MEDS: TAMSULOSIN 0.4 MG CAP PO SCH (08:35)
[2024-04-23] MEDS: DULoxetine 20MG CAP (CYMBALTA) PO SCH (08:36)
[2024-04-23] MEDS: PANTOPRAZOLE 40MG VIAL IV SCH (08:36)
[2024-04-23] MEDS: ENOXAPARIN 40MG/0.4ML SYRINGE (J1650 PER 10MG) SC SCH (08:36)
[2024-04-23] MEDS: cefTRIAXone SOD 1 GM in D5W MINI-BAG PLUS 50 ML IV SCH (08:36)
[2024-04-23] MEDS ORDERED: CREON 3000 UNIT PO SCH (09:00)
[2024-04-23 12:00] VITALS: BP 116/65; TEMP 97.2; O2SAT 97
[2024-04-23] MEDS: ACETAMINOPHEN TAB 650MG DOSE (2X325MG) PO PRN (16:52)
[2024-04-23 20:06] VITALS: BP 110/58; TEMP 97.2; O2SAT 96
[2024-04-24 04:00] VITALS: BP 129/64; TEMP 97.2; O2SAT 96
[2024-04-24 06:43] LABS: HEMATOCRIT 38.8 % (42.0-52.0); HEMOGLOBIN 12.6 g/dl (13.5-17.5); MEAN CORPUSCULAR HEMOGLOBIN 31.8 pg (27.0-33.0); MEAN CORPUSCULAR HGB CONC 32.5 g/dl (32.0-36.5); PLATELET COUNT, AUTOMATED 189 10^3/uL (150-450); RED BLOOD COUNT 3.96 10^6/uL (4.30-6.10); WHITE BLOOD COUNT 6.7 10^3/uL (4.0-10.0)
[2024-04-24 07:04] LABS: ALBUMIN 2.8 G/DL (3.2-5.2); ALKALINE PHOSPHATASE 99 U/L (46-116); ALT/SGPT 13 U/L (7.0-40); AST/SGOT < 8 U/L (<34); BILIRUBIN,TOTAL 0.2 MG/DL (0.3-1.2); BLOOD UREA NITROGEN 15 MG/DL (9-23); CALCIUM LEVEL 8.7 MG/DL (8.3-10.6); CARBON DIOXIDE LEVEL 28 MMOL/L (20-31); CHLORIDE LEVEL 109 MMOL/L (98-107); CREATININE FOR GFR 0.61 MG/DL (0.70-1.30); GLOMERULAR FILTRATION RATE > 60.0 (>35); GLUCOSE, FASTING 118 MG/DL (74-106); POTASSIUM SERUM 3.8 MMOL/L (3.5-5.1); SODIUM LEVEL 141 MMOL/L (136-145); TOTAL PROTEIN 5.4 G/DL (5.7-8.2)
[2024-04-24 12:00] VITALS: BP 129/64; TEMP 97.3; O2SAT 98
[2024-04-24 20:00] VITALS: BP 129/64; TEMP 97.3; O2SAT 98
[2024-04-24 20:06] LABS: INR 1.06; PARTIAL THROMBOPLASTIN TIME 31.4 SECONDS (24.8-34.2); PROTHROMBIN TIME 13.5 SECONDS (12.5-14.5)
[2024-04-24 21:01] VITALS: BP 129/64; TEMP 97.2; O2SAT 98
[2024-04-24] MEDS: APIXABAN 5 MG TAB (ELIQUIS) PO SCH (23:14)
[2024-04-25] MEDS: KETOROLAC TROMETHAMINE 10 MG TAB PO ONE (00:50)
[2024-04-25 04:00] VITALS: BP 115/54; TEMP 97; O2SAT 96
[2024-04-25 06:44] LABS: HEMATOCRIT 35.4 % (42.0-52.0); HEMOGLOBIN 11.6 g/dl (13.5-17.5); MEAN CORPUSCULAR HEMOGLOBIN 31.7 pg (27.0-33.0); MEAN CORPUSCULAR HGB CONC 32.8 g/dl (32.0-36.5); MEAN CORPUSCULAR VOLUME 96.7 fl (80.0-96.0); PLATELET COUNT, AUTOMATED 169 10^3/uL (150-450); RED BLOOD COUNT 3.66 10^6/uL (4.30-6.10); WHITE BLOOD COUNT 6.1 10^3/uL (4.0-10.0)
[2024-04-25 07:15] LABS: ALBUMIN 2.6 G/DL (3.2-5.2); ALKALINE PHOSPHATASE 89 U/L (46-116); ALT/SGPT 12 U/L (7.0-40); AST/SGOT < 8 U/L (<34); BILIRUBIN,TOTAL 0.2 MG/DL (0.3-1.2); BLOOD UREA NITROGEN 13 MG/DL (9-23); CALCIUM LEVEL 8.3 MG/DL (8.3-10.6); CARBON DIOXIDE LEVEL 27 MMOL/L (20-31); CHLORIDE LEVEL 110 MMOL/L (98-107); CREATININE FOR GFR 0.57 MG/DL (0.70-1.30); GLOMERULAR FILTRATION RATE > 60.0 (>35); GLUCOSE, FASTING 92 MG/DL (74-106); POTASSIUM SERUM 3.8 MMOL/L (3.5-5.1); SODIUM LEVEL 140 MMOL/L (136-145)
[2024-04-25] MEDS: MOM 30ML SUSPENSION UDC PO PRN (08:04)
[2024-04-25 12:20] VITALS: BP 122/56; TEMP 97.2; O2SAT 96
[2024-04-25 20:12] VITALS: BP 137/62; TEMP 97.3; O2SAT 98
[2024-04-26 04:18] VITALS: BP 97/59; TEMP 97.5; O2SAT 98
[2024-04-26 06:33] LABS: HEMOGLOBIN 11.5 g/dl (13.5-17.5); MEAN CORPUSCULAR HEMOGLOBIN 31.6 pg (27.0-33.0); MEAN CORPUSCULAR HGB CONC 31.9 g/dl (32.0-36.5); MEAN CORPUSCULAR VOLUME 98.9 fl (80.0-96.0); PLATELET COUNT, AUTOMATED 171 10^3/uL (150-450); RED BLOOD COUNT 3.64 10^6/uL (4.30-6.10); WHITE BLOOD COUNT 7.1 10^3/uL (4.0-10.0)
[2024-04-26 07:03] LABS: ALBUMIN 2.8 G/DL (3.2-5.2); ALKALINE PHOSPHATASE 94 U/L (46-116); ALT/SGPT 16 U/L (7.0-40); AST/SGOT 9 U/L (<34); BILIRUBIN,TOTAL 0.2 MG/DL (0.3-1.2); BLOOD UREA NITROGEN 15 MG/DL (9-23); CALCIUM LEVEL 8.3 MG/DL (8.3-10.6); CARBON DIOXIDE LEVEL 28 MMOL/L (20-31); CHLORIDE LEVEL 107 MMOL/L (98-107); CREATININE FOR GFR 0.59 MG/DL (0.70-1.30); GLOMERULAR FILTRATION RATE > 60.0 (>35); GLUCOSE, FASTING 91 MG/DL (74-106); SODIUM LEVEL 139 MMOL/L (136-145); TOTAL PROTEIN 5.2 G/DL (5.7-8.2)
[2024-04-26] MEDS: UNRESOLVED PATIENT OWN MED ORDER XX SCH (09:00)
[2024-04-26 12:00] VITALS: BP 126/62; TEMP 97.7; O2SAT 98
[2024-04-26 19:59] VITALS: BP 127/61; TEMP 97.2; O2SAT 97
[2024-04-27 04:40] VITALS: BP 117/51; TEMP 97.5; O2SAT 97
[2024-04-27 06:51] LABS: HEMATOCRIT 34.1 % (42.0-52.0); MEAN CORPUSCULAR HEMOGLOBIN 31.7 pg (27.0-33.0); MEAN CORPUSCULAR HGB CONC 32.3 g/dl (32.0-36.5); MEAN CORPUSCULAR VOLUME 98.3 fl (80.0-96.0); PLATELET COUNT, AUTOMATED 173 10^3/uL (150-450); RED BLOOD COUNT 3.47 10^6/uL (4.30-6.10); WHITE BLOOD COUNT 5.5 10^3/uL (4.0-10.0)
[2024-04-27 07:18] LABS: ALBUMIN 2.6 G/DL (3.2-5.2); ALKALINE PHOSPHATASE 85 U/L (46-116); ALT/SGPT 15 U/L (7.0-40); AST/SGOT < 8 U/L (<34); BILIRUBIN,TOTAL 0.2 MG/DL (0.3-1.2); BLOOD UREA NITROGEN 15 MG/DL (9-23); CALCIUM LEVEL 8.4 MG/DL (8.3-10.6); CARBON DIOXIDE LEVEL 29 MMOL/L (20-31); CHLORIDE LEVEL 109 MMOL/L (98-107); CREATININE FOR GFR 0.59 MG/DL (0.70-1.30); GLOMERULAR FILTRATION RATE > 60.0 (>35); GLUCOSE, FASTING 82 MG/DL (74-106); POTASSIUM SERUM 4.1 MMOL/L (3.5-5.1); SODIUM LEVEL 142 MMOL/L (136-145); TOTAL PROTEIN 4.9 G/DL (5.7-8.2)
[2024-04-27] MEDS: CEFDINIR 300 MG CAP (OMNICEF) PO SCH (11:03)
[2024-04-27 12:00] VITALS: BP 127/61; TEMP 97.7; O2SAT 93
[2024-04-27 20:00] VITALS: BP 128/61; TEMP 97.7; O2SAT 96
[2024-04-28 04:15] VITALS: BP 127/56; TEMP 97.2; O2SAT 96
[2024-04-28] MEDS: oxyCODONE 15MG CR TAB PO SCH (09:24)
[2024-04-28 12:00] VITALS: BP 148/68; TEMP 97.9; O2SAT 98
[2024-04-28 20:16] VITALS: BP 119/53; TEMP 97.5; O2SAT 98
[2024-04-28] MEDS: CREON 36000 UNIT PO SCH (20:39)
[2024-04-29 04:05] VITALS: BP 121/58; TEMP 97.2; O2SAT 94
[2024-04-29] MEDS ORDERED: ELIQ5TAB PO (07:12)
[2024-04-29 12:00] VITALS: BP 132/67; TEMP 97.3; O2SAT 96
[2024-04-30 03:40] VITALS: BP 133/64; TEMP 97.7; O2SAT 94
[2024-04-30 12:00] VITALS: BP 131/65; TEMP 97.7; O2SAT 94
[2024-04-30 20:00] VITALS: BP 136/65; TEMP 97.9; O2SAT 95
[2024-05-01 04:00] VITALS: BP 124/59; TEMP 97.7; O2SAT 97
[2024-05-01 12:00] VITALS: BP 139/73; TEMP 97.3; O2SAT 98
[2024-05-01 20:00] VITALS: BP 138/69; TEMP 97.8; O2SAT 98
[2024-05-02 04:00] VITALS: BP 148/71; TEMP 97.5; O2SAT 98
[2024-05-02 12:00] VITALS: BP 140/83; TEMP 97.2; O2SAT 97
[2024-05-02 20:46] VITALS: BP 99/59; TEMP 97.3; O2SAT 93
[2024-05-03 03:50] VITALS: BP 104/59; TEMP 97.3; O2SAT 97
[2024-05-03 04:00] VITALS: BP 110/59; TEMP 97.6; O2SAT 96
[2024-05-03 12:00] VITALS: BP 125/61; TEMP 97.3; O2SAT 97
[2024-05-03 21:00] VITALS: BP 128/70; TEMP 97.9; O2SAT 97
[2024-05-04 12:00] VITALS: BP 129/60; TEMP 97; O2SAT 96
[2024-05-04 20:30] VITALS: BP 146/64; TEMP 97.2; O2SAT 98
[2024-05-05 04:00] VITALS: BP 142/64; TEMP 97.2; O2SAT 96
[2024-05-05 12:00] VITALS: BP 141/65; TEMP 97.7; O2SAT 97
[2024-05-05 19:39] VITALS: BP 116/58; TEMP 97.3; O2SAT 96
[2024-05-06 04:00] VITALS: BP 133/66; TEMP 97.5; O2SAT 97
[2024-05-06 12:00] VITALS: BP 138/63; TEMP 97.3; O2SAT 97
== END 2024-05-06 16:41 | DRG 560 ==
LOC: M ED 16:05 → EDBD 16:05 → M ED INP 16:06 → M MSPAV 04-23 → OBSVTOIN 04-26 18:16
PROVIDERS: ADMIT Preventive Medicine Undersea and Hyperbaric Medicine; ATTEND Internal Medicine
PROC: B246ZZZ Ultrasonography of Right and Left Heart (ICD-10-PCS; principal; 2024-04-26)
DX: S82.141D Displaced bicondylar fracture of right tibia, subsequent encounter for closed fracture with routine healing (principal); N39.0 Urinary tract infection, site not specified; K86.1 Other chronic pancreatitis; N40.0 Benign prostatic hyperplasia without lower urinary tract symptoms; M48.061 Spinal stenosis, lumbar region without neurogenic claudication; E78.5 Hyperlipidemia, unspecified; M17.11 Unilateral primary osteoarthritis, right knee; I48.0 Paroxysmal atrial fibrillation; R26.89 Other abnormalities of gait and mobility; I25.10 Atherosclerotic heart disease of native coronary artery without angina pectoris; M54.50 Low back pain, unspecified; G89.29 Other chronic pain; Z96.642 Presence of left artificial hip joint; K21.9 Gastro-esophageal reflux disease without esophagitis; Z79.891 Long term (current) use of opiate analgesic; Z79.899 Other long term (current) drug therapy; Z88.1 Allergy status to other antibiotic agents; Z74.1 Need for assistance with personal care; Z74.09 Other reduced mobility; Z95.5 Presence of coronary angioplasty implant and graft; B96.20 Unspecified Escherichia coli [E. coli] as the cause of diseases classified elsewhere

== ENCOUNTER → 2024-06-09 | Outpatient (REF) ==
[~2024-06-09] MED LIST changes: +CREO3000 PO; +CREO3600 PO; +ELIQ5TAB PO; +OXYC15TA66 PO
[2024-06-09 09:01] LABS: HEMATOCRIT 42.6 % (42.0-52.0); HEMOGLOBIN 13.6 g/dl (13.5-17.5); MEAN CORPUSCULAR HEMOGLOBIN 31.3 pg (27.0-33.0); MEAN CORPUSCULAR HGB CONC 31.9 g/dl (32.0-36.5); MEAN CORPUSCULAR VOLUME 98.2 fl (80.0-96.0); PLATELET COUNT, AUTOMATED 249 10^3/uL (150-450); RED BLOOD COUNT 4.34 10^6/uL (4.30-6.10); WHITE BLOOD COUNT 6.1 10^3/uL (4.0-10.0)
[2024-06-09 09:27] LABS: BLOOD UREA NITROGEN 13 MG/DL (9-23); CALCIUM LEVEL 8.8 MG/DL (8.3-10.6); CARBON DIOXIDE LEVEL 30 MMOL/L (20-31); CHLORIDE LEVEL 105 MMOL/L (98-107); CREATININE FOR GFR 0.63 MG/DL (0.70-1.30); GLOMERULAR FILTRATION RATE > 60.0 (>35); GLUCOSE, FASTING 82 MG/DL (74-106); POTASSIUM SERUM 4.1 MMOL/L (3.5-5.1); SODIUM LEVEL 139 MMOL/L (136-145)
== END ==
PROVIDERS: ATTEND Physician Assistant
DX: S82.141D Displaced bicondylar fracture of right tibia, subsequent encounter for closed fracture with routine healing (principal)

== ENCOUNTER → 2024-06-16 | Outpatient (REF) ==
[2024-06-16 10:20] LABS: HEMATOCRIT 41.7 % (42.0-52.0); HEMOGLOBIN 13.4 g/dl (13.5-17.5); MEAN CORPUSCULAR HEMOGLOBIN 31.3 pg (27.0-33.0); MEAN CORPUSCULAR HGB CONC 32.1 g/dl (32.0-36.5); MEAN CORPUSCULAR VOLUME 97.4 fl (80.0-96.0); PLATELET COUNT, AUTOMATED 256 10^3/uL (150-450); RED BLOOD COUNT 4.28 10^6/uL (4.30-6.10); WHITE BLOOD COUNT 7.2 10^3/uL (4.0-10.0)
[2024-06-16 10:49] LABS: BLOOD UREA NITROGEN 14 MG/DL (9-23); CARBON DIOXIDE LEVEL 28 MMOL/L (20-31); CHLORIDE LEVEL 107 MMOL/L (98-107); CREATININE FOR GFR 0.65 MG/DL (0.70-1.30); GLOMERULAR FILTRATION RATE > 60.0 (>35); GLUCOSE, FASTING 110 MG/DL (74-106); POTASSIUM SERUM 4.1 MMOL/L (3.5-5.1); SODIUM LEVEL 141 MMOL/L (136-145)
== END ==
PROVIDERS: ATTEND Physician Assistant
DX: S82.141D Displaced bicondylar fracture of right tibia, subsequent encounter for closed fracture with routine healing (principal)

== ENCOUNTER → 2024-07-07 | Outpatient (REF) ==
[2024-07-07 09:47] LABS: HEMATOCRIT 39.1 % (42.0-52.0); HEMOGLOBIN 12.4 g/dl (13.5-17.5); MEAN CORPUSCULAR HGB CONC 31.7 g/dl (32.0-36.5); MEAN CORPUSCULAR VOLUME 97.8 fl (80.0-96.0); PLATELET COUNT, AUTOMATED 384 10^3/uL (150-450); WHITE BLOOD COUNT 7.4 10^3/uL (4.0-10.0)
[2024-07-07 10:24] LABS: BLOOD UREA NITROGEN 14 MG/DL (9-23); CARBON DIOXIDE LEVEL 27 MMOL/L (20-31); CHLORIDE LEVEL 109 MMOL/L (98-107); CREATININE FOR GFR 0.56 MG/DL (0.70-1.30); GLOMERULAR FILTRATION RATE > 60.0 (>35); GLUCOSE, FASTING 79 MG/DL (74-106); POTASSIUM SERUM 4.7 MMOL/L (3.5-5.1); SODIUM LEVEL 141 MMOL/L (136-145)
== END ==
PROVIDERS: ATTEND Physician Assistant
DX: S82.141D Displaced bicondylar fracture of right tibia, subsequent encounter for closed fracture with routine healing (principal)

== ENCOUNTER → 2024-07-26 | Outpatient (REF) | PROVIDERS: ATTEND Physician Assistant | DX: N39.0 Urinary tract infection, site not specified (principal) ==

== ENCOUNTER → 2024-07-27 | Outpatient (REF) | PROVIDERS: ATTEND Physician Assistant | DX: Z01.89 Encounter for other specified special examinations (principal); Z53.8 Procedure and treatment not carried out for other reasons ==

== ENCOUNTER → 2024-07-28 | Outpatient (REF) ==
[2024-07-28 09:28] LABS: HEMATOCRIT 39.2 % (42.0-52.0); HEMOGLOBIN 12.4 g/dl (13.5-17.5); MEAN CORPUSCULAR HEMOGLOBIN 31.5 pg (27.0-33.0); MEAN CORPUSCULAR HGB CONC 31.6 g/dl (32.0-36.5); MEAN CORPUSCULAR VOLUME 99.5 fl (80.0-96.0); PLATELET COUNT, AUTOMATED 206 10^3/uL (150-450); RED BLOOD COUNT 3.94 10^6/uL (4.30-6.10); WHITE BLOOD COUNT 6.1 10^3/uL (4.0-10.0)
[2024-07-28 09:37] LABS: BLOOD UREA NITROGEN 10 MG/DL (9-23); CALCIUM LEVEL 8.9 MG/DL (8.3-10.6); CARBON DIOXIDE LEVEL 27 MMOL/L (20-31); CHLORIDE LEVEL 110 MMOL/L (98-107); CREATININE FOR GFR 0.57 MG/DL (0.70-1.30); GLOMERULAR FILTRATION RATE > 60.0 (>35); GLUCOSE, FASTING 76 MG/DL (74-106); POTASSIUM SERUM 4.1 MMOL/L (3.5-5.1); SODIUM LEVEL 143 MMOL/L (136-145)
== END ==
PROVIDERS: ATTEND Physician Assistant
DX: R35.0 Frequency of micturition (principal)

== ENCOUNTER → 2024-08-05 | Outpatient (REF) | PROVIDERS: ATTEND Physician Assistant | DX: S82.141D Displaced bicondylar fracture of right tibia, subsequent encounter for closed fracture with routine healing (principal); Z53.8 Procedure and treatment not carried out for other reasons ==

== ENCOUNTER → 2024-08-05 | Outpatient (REF) | PROVIDERS: ATTEND Physician Assistant | DX: S82.141D Displaced bicondylar fracture of right tibia, subsequent encounter for closed fracture with routine healing (principal); Z53.8 Procedure and treatment not carried out for other reasons ==

== ENCOUNTER → 2024-08-12 | Outpatient (REF) | payer MEDICARE ==
[2024-08-12 18:33] LABS: APPEARANCE, URINE HAZY (CLEAR); BACTERIA, URINE AUTO 1+ (NEGATIVE); BILIRUBIN, URINE AUTO NEGATIVE (NEGATIVE); BLOOD, URINE BLOOD 2+ (NEGATIVE); COLOR, URINE YELLOW (YELLOW); GLUCOSE, URINE (UA) AUTO NEGATIVE (NEGATIVE); KETONE, URINE AUTO NEGATIVE (NEGATIVE); LEUKOCYTE ESTERASE, URINE AUTO 3+ (NEGATIVE); MUCUS, URINE SMALL (NEGATIVE); NITRITE, URINE AUTO POSITIVE (NEGATIVE); PROTEIN, URINE AUTO 1+ mg/dL (NEGATIVE); RBC, URINE AUTO 13 /HPF (0-3); SPECIFIC GRAVITY URINE AUTO 1.017 (1.002-1.035); SQUAMOUS EPITHELIAL CELL UR AU 1 /HPF (0-6); UROBILINOGEN, URINE AUTO 0.2 mg/dL (0.0-2.0); WBC, URINE AUTO TNTC /HPF (0-3)
== END ==
LOC: M SMT 17:08
PROVIDERS: ATTEND Physician Assistant
DX: R30.0 Dysuria (principal)

== ENCOUNTER → 2024-08-13 | Outpatient (REF) | payer MEDICARE ==
[2024-08-13 20:09] LABS: APPEARANCE, URINE TURBID (CLEAR); BACTERIA, URINE AUTO 3+ (NEGATIVE); BILIRUBIN, URINE AUTO NEGATIVE (NEGATIVE); BLOOD, URINE BLOOD 2+ (NEGATIVE); COLOR, URINE AMBER (YELLOW); GLUCOSE, URINE (UA) AUTO NEGATIVE (NEGATIVE); KETONE, URINE AUTO TRACE mg/dL (NEGATIVE); LEUKOCYTE ESTERASE, URINE AUTO 3+ (NEGATIVE); MUCUS, URINE LARGE (NEGATIVE); NITRITE, URINE AUTO POSITIVE (NEGATIVE); PROTEIN, URINE AUTO 2+ mg/dL (NEGATIVE); RBC, URINE AUTO 33 /HPF (0-3); SPECIFIC GRAVITY URINE AUTO 1.027 (1.002-1.035); SQUAMOUS EPITHELIAL CELL UR AU 4 /HPF (0-6); WBC, URINE AUTO TNTC /HPF (0-3)
== END ==
LOC: M LAB REF 19:12
PROVIDERS: ATTEND Physician Assistant Medical
DX: N39.0 Urinary tract infection, site not specified (principal)

== ENCOUNTER → 2024-08-17 | Outpatient (REF) | payer MEDICARE ==
[2024-08-18 12:44] LABS: APPEARANCE, URINE HAZY (CLEAR); BACTERIA, URINE AUTO 2+ (NEGATIVE); BILIRUBIN, URINE AUTO NEGATIVE (NEGATIVE); BLOOD, URINE BLOOD 1+ (NEGATIVE); COLOR, URINE YELLOW (YELLOW); GLUCOSE, URINE (UA) AUTO NEGATIVE (NEGATIVE); KETONE, URINE AUTO NEGATIVE (NEGATIVE); LEUKOCYTE ESTERASE, URINE AUTO 3+ (NEGATIVE); MUCUS, URINE SMALL (NEGATIVE); NITRITE, URINE AUTO POSITIVE (NEGATIVE); PROTEIN, URINE AUTO NEGATIVE (NEGATIVE); RBC, URINE AUTO 3 /HPF (0-3); SPECIFIC GRAVITY URINE AUTO 1.011 (1.002-1.035); SQUAMOUS EPITHELIAL CELL UR AU 0 /HPF (0-6); UROBILINOGEN, URINE AUTO 0.2 mg/dL (0.0-2.0); WBC, URINE AUTO 55 /HPF (0-3)
== END ==
LOC: M SFHCPLAZ 17:10
DX: N30.00 Acute cystitis without hematuria (principal)

== ENCOUNTER → 2024-09-01 | Outpatient (REF) | payer MEDICARE | LOC: M SFHCPLAZ 09:56 | DX: Z53.9 Procedure and treatment not carried out, unspecified reason (principal) ==

== ENCOUNTER → 2024-09-09 | Outpatient (REF) | payer MEDICARE ==
[2024-09-09 18:26] LABS: APPEARANCE, URINE CLOUDY (CLEAR); BACTERIA, URINE AUTO 1+ (NEGATIVE); BILIRUBIN, URINE AUTO NEGATIVE (NEGATIVE); BLOOD, URINE BLOOD 1+ (NEGATIVE); COLOR, URINE YELLOW (YELLOW); GLUCOSE, URINE (UA) AUTO NEGATIVE (NEGATIVE); KETONE, URINE AUTO NEGATIVE (NEGATIVE); LEUKOCYTE ESTERASE, URINE AUTO 3+ (NEGATIVE); MUCUS, URINE SMALL (NEGATIVE); NITRITE, URINE AUTO NEGATIVE (NEGATIVE); PROTEIN, URINE AUTO 2+ mg/dL (NEGATIVE); RBC, URINE AUTO 9 /HPF (0-3); SPECIFIC GRAVITY URINE AUTO 1.012 (1.002-1.035); SQUAMOUS EPITHELIAL CELL UR AU 0 /HPF (0-6); UROBILINOGEN, URINE AUTO 0.2 mg/dL (0.0-2.0); WBC, URINE AUTO TNTC /HPF (0-3)
== END ==
LOC: M SFHCPLAZ 17:25
DX: N39.0 Urinary tract infection, site not specified (principal)

== ENCOUNTER → 2024-09-14 | Outpatient (REF) | payer MEDICARE ==
[2024-09-14 18:06] LABS: APPEARANCE, URINE CLOUDY (CLEAR); BACTERIA, URINE AUTO 1+ (NEGATIVE); BILIRUBIN, URINE AUTO NEGATIVE (NEGATIVE); BLOOD, URINE BLOOD NEGATIVE (NEGATIVE); COLOR, URINE YELLOW (YELLOW); GLUCOSE, URINE (UA) AUTO NEGATIVE (NEGATIVE); KETONE, URINE AUTO NEGATIVE (NEGATIVE); LEUKOCYTE ESTERASE, URINE AUTO 3+ (NEGATIVE); NITRITE, URINE AUTO NEGATIVE (NEGATIVE); PROTEIN, URINE AUTO 1+ mg/dL (NEGATIVE); RBC, URINE AUTO 0 /HPF (0-3); SPECIFIC GRAVITY URINE AUTO 1.011 (1.002-1.035); SQUAMOUS EPITHELIAL CELL UR AU 0 /HPF (0-6); UROBILINOGEN, URINE AUTO 0.2 mg/dL (0.0-2.0); WBC, URINE AUTO TNTC /HPF (0-3)
== END ==
LOC: M SMT 16:51
PROVIDERS: ATTEND Urology
DX: N31.2 Flaccid neuropathic bladder, not elsewhere classified (principal); Z79.899 Other long term (current) drug therapy

== ENCOUNTER → 2024-10-01 | Outpatient (REF) | payer MEDICARE ==
[~2024-10-01] MED LIST changes: +ACET-683 PO; +ACET650T15 PO; +BACL5TAB2 PO; +DICL100G10 TOP
[2024-10-01 13:10] LABS: APPEARANCE, URINE CLOUDY (CLEAR); BACTERIA, URINE AUTO 2+ (NEGATIVE); BILIRUBIN, URINE AUTO 2+ (NEGATIVE); BLOOD, URINE BLOOD 1+ (NEGATIVE); COLOR, URINE AMBER (YELLOW); GLUCOSE, URINE (UA) AUTO NEGATIVE (NEGATIVE); KETONE, URINE AUTO NEGATIVE (NEGATIVE); LEUKOCYTE ESTERASE, URINE AUTO 3+ (NEGATIVE); MUCUS, URINE SMALL (NEGATIVE); NITRITE, URINE AUTO NEGATIVE (NEGATIVE); PROTEIN, URINE AUTO 2+ mg/dL (NEGATIVE); RBC, URINE AUTO 21 /HPF (0-3); RENAL EPITHELIAL CELLS 1 /HPF; SPECIFIC GRAVITY URINE AUTO 1.028 (1.002-1.035); SQUAMOUS EPITHELIAL CELL UR AU 0 /HPF (0-6); TRIPLE PHOSPHATE CRYSTALS SMALL; UROBILINOGEN, URINE AUTO 0.2 mg/dL (0.0-2.0); WBC, URINE AUTO 47 /HPF (0-3)
== END ==
LOC: M SMT 09:47
PROVIDERS: ATTEND Physician Assistant
DX: R45.4 Irritability and anger (principal); Z79.899 Other long term (current) drug therapy

== ENCOUNTER 2024-10-05 11:30 | Inpatient (IN) | payer MEDICARE ==
[~2024-10-05] VITALS: Ht 190.5 cm; Wt 56.9 kg
[~2024-10-05 11:30] MED LIST changes: -ACET-683 PO; -ACET650T15 PO; -BACL5TAB2 PO; -DICL100G10 TOP
[2024-10-05] MEDS ORDERED: CREO3600 PO (11:51)
[2024-10-05] MEDS ORDERED: ACET-683 PO (11:52)
[2024-10-05 12:31] LABS: BASO % 0.5 % (0.0-1.0); EOS # 0.2 10^3/uL (0.0-0.5); EOS % 2.3 % (0.0-3.0); HEMATOCRIT 38.9 % (42.0-52.0); HEMOGLOBIN 12.9 g/dl (13.5-17.5); LYMPH # 1.6 10^3/uL (1.5-5.0); MEAN CORPUSCULAR HEMOGLOBIN 32.1 pg (27.0-33.0); MEAN CORPUSCULAR HGB CONC 33.2 g/dl (32.0-36.5); MEAN CORPUSCULAR VOLUME 96.8 fl (80.0-96.0); MONO # 1.1 10^3/uL (0.0-0.8); MONO % 13.8 % (2.0-8.0); NEUTROPHILS # 5.2 10^3/uL (1.5-8.5); NEUTROPHILS % 64.2 % (36.0-66.0); PLATELET COUNT, AUTOMATED 183 10^3/uL (150-450); RED BLOOD COUNT 4.02 10^6/uL (4.30-6.10); WHITE BLOOD COUNT 8.2 10^3/uL (4.0-10.0)
[2024-10-05] MEDS: LIDOCAINE 2% 5ML JELLY UROJET TOP ONE (12:36)
[2024-10-05] MEDS: ACETAMINOPHEN *IV* 1,000 MG in IV 1 EA IV ONE (12:52)
[2024-10-05 13:00] LABS: ALKALINE PHOSPHATASE 81 U/L (40-129); ALT/SGPT 12 U/L (7.0-40); AST/SGOT 15 U/L (<34); BILIRUBIN,TOTAL 0.4 MG/DL (0.3-1.2); BLOOD UREA NITROGEN 16 MG/DL (9-23); CALCIUM LEVEL 8.3 MG/DL (8.3-10.6); CARBON DIOXIDE LEVEL 26 MMOL/L (20-31); CHLORIDE LEVEL 105 MMOL/L (98-107); CREATININE FOR GFR 0.65 MG/DL (0.70-1.30); GLOMERULAR FILTRATION RATE > 60.0 (>35); GLUCOSE, FASTING 100 MG/DL (74-106); POTASSIUM SERUM 3.9 MMOL/L (3.5-5.1); SODIUM LEVEL 139 MMOL/L (136-145); TOTAL PROTEIN 6.1 G/DL (5.7-8.2)
[2024-10-05] MEDS ORDERED: AMPICILLIN SOD/SULBACTAM SOD 1.5 GM in DEXTROSE 5% (D5W) ADV/MINI-BAG 50 ML IV SCH (14:50)
[2024-10-05] MEDS ORDERED: VANCOMYCIN/WATER FOR INJ 1,000 MG in IV 1 EA IV SCH (14:50)
[2024-10-05] MEDS: VANCOMYCIN 1,250 MG/250 ML IV BAG *LOAD IV ONE (15:55)
[2024-10-05 15:58] LABS: C REACTIVE PROTEIN QUANTITATIV 11.36 MG/DL (<1.0)
[2024-10-05] MEDS ORDERED: BACL5TAB2 PO (16:19)
[2024-10-05] MEDS ORDERED: ACET650T15 PO (16:19)
[2024-10-05] MEDS ORDERED: DICL100G10 TOP (16:22)
[2024-10-05] MEDS ORDERED: HOME MED LIST COMPLETE! XX SCH (16:25)
[2024-10-05] MEDS: LACTOBACILLUS ACIDOPHILUS CAP (BACID) PO SCH (18:05)
[2024-10-05] MEDS: AMPICILLIN SOD/SULBACTAM SOD 3 GM in SODIUM CHLORIDE 0.9% 100ML ADD 100 ML IV SCH (18:43)
[2024-10-05] MEDS: oxyCODONE 15MG CR TAB PO SCH (20:01)
[2024-10-05 21:04] VITALS: TEMP 97.7; O2SAT 98
[2024-10-05 21:23] VITALS: BP 182/90
[2024-10-05] MEDS: FINASTERIDE 5MG TAB PO SCH (21:38)
[2024-10-05] MEDS: APIXABAN 5 MG TAB (ELIQUIS) PO SCH (21:38)
[2024-10-05] MEDS: ACETAMINOPHEN 650MG ER TAB (TYLENOL ARTHRITIS) PO PRN (21:38)
[2024-10-05] MEDS: DULoxetine 20MG CAP (CYMBALTA) PO SCH (21:38)
[2024-10-05 22:49] VITALS: BP 182/90
[2024-10-05] MEDS: HYDROMORPHONE HCL 0.5 MG/ 0.5 ML SYRINGE IV ONE (22:49)
[2024-10-05 23:45] VITALS: BP 152/80
[2024-10-06] MEDS: VANCOMYCIN 1,000MG/200 ML IV BAG IV SCH (01:03)
[2024-10-06] MEDS: NORCO, ANEXSIA 5/325MG TABLET (HYDROcodone/ACETAMINOPHEN) PO ONE (03:01)
[2024-10-06 04:00] VITALS: BP 172/90; TEMP 97.5; O2SAT 96
[2024-10-06 04:25] VITALS: BP 124/68
[2024-10-06 06:17] LABS: BASO % 0.3 % (0.0-1.0); EOS # 0.1 10^3/uL (0.0-0.5); EOS % 0.4 % (0.0-3.0); HEMATOCRIT 39.1 % (42.0-52.0); LYMPH # 0.8 10^3/uL (1.5-5.0); LYMPH % 6.9 % (24.0-44.0); MEAN CORPUSCULAR HEMOGLOBIN 32.1 pg (27.0-33.0); MEAN CORPUSCULAR HGB CONC 33.2 g/dl (32.0-36.5); MEAN CORPUSCULAR VOLUME 96.5 fl (80.0-96.0); MONO # 1.4 10^3/uL (0.0-0.8); MONO % 11.4 % (2.0-8.0); NEUTROPHILS # 9.7 10^3/uL (1.5-8.5); NEUTROPHILS % 80.4 % (36.0-66.0); PLATELET COUNT, AUTOMATED 185 10^3/uL (150-450); RED BLOOD COUNT 4.05 10^6/uL (4.30-6.10)
[2024-10-06 06:39] LABS: BLOOD UREA NITROGEN 12 MG/DL (9-23); CALCIUM LEVEL 8.1 MG/DL (8.3-10.6); CARBON DIOXIDE LEVEL 24 MMOL/L (20-31); CHLORIDE LEVEL 104 MMOL/L (98-107); CREATININE FOR GFR 0.57 MG/DL (0.70-1.30); GLOMERULAR FILTRATION RATE > 60.0 (>35); GLUCOSE, FASTING 105 MG/DL (74-106); SODIUM LEVEL 138 MMOL/L (136-145)
[2024-10-06] MEDS: TAMSULOSIN 0.4 MG CAP PO SCH (08:22)
[2024-10-06] MEDS ORDERED: CREON-12 CAPSULE (PANCRELIPASE) PO PRN (09:00)
[2024-10-06 12:00] VITALS: BP 124/48; TEMP 97.3; O2SAT 92
[2024-10-06] MEDS: PROMETHAZINE 25MG/ML 1ML VIAL IV ONE (13:09)
[2024-10-06] MEDS: CREON-24 CAPSULE (PANCRELIPASE) PO SCH (16:38)
[2024-10-06 20:00] VITALS: BP 100/42; TEMP 97.3; O2SAT 97
[2024-10-07 04:00] VITALS: BP 108/50; TEMP 97.5; O2SAT 95
[2024-10-07 06:04] LABS: BASO % 0.3 % (0.0-1.0); EOS # 0.1 10^3/uL (0.0-0.5); EOS % 0.4 % (0.0-3.0); HEMATOCRIT 36.4 % (42.0-52.0); HEMOGLOBIN 11.8 g/dl (13.5-17.5); LYMPH # 1.3 10^3/uL (1.5-5.0); MEAN CORPUSCULAR HEMOGLOBIN 31.6 pg (27.0-33.0); MEAN CORPUSCULAR HGB CONC 32.4 g/dl (32.0-36.5); MEAN CORPUSCULAR VOLUME 97.3 fl (80.0-96.0); MONO # 1.6 10^3/uL (0.0-0.8); MONO % 10.8 % (2.0-8.0); NEUTROPHILS # 11.6 10^3/uL (1.5-8.5); NEUTROPHILS % 78.7 % (36.0-66.0); PLATELET COUNT, AUTOMATED 161 10^3/uL (150-450); RED BLOOD COUNT 3.74 10^6/uL (4.30-6.10); WHITE BLOOD COUNT 14.7 10^3/uL (4.0-10.0)
[2024-10-07 06:31] LABS: BLOOD UREA NITROGEN 19 MG/DL (9-23); CALCIUM LEVEL 8.5 MG/DL (8.3-10.6); CARBON DIOXIDE LEVEL 26 MMOL/L (20-31); CHLORIDE LEVEL 103 MMOL/L (98-107); CREATININE FOR GFR 0.81 MG/DL (0.70-1.30); GLOMERULAR FILTRATION RATE > 60.0 (>35); GLUCOSE, FASTING 115 MG/DL (74-106); SODIUM LEVEL 138 MMOL/L (136-145)
[2024-10-07 12:00] VITALS: BP 98/50; TEMP 97.5; O2SAT 93
[2024-10-07] MEDS: MIDODRINE 5 MG TAB PO ONE (15:44)
[2024-10-07] MEDS: NS 500 ML IV ONE (15:44)
[2024-10-07 16:23] VITALS: BP 116/68; TEMP 97.7; O2SAT 99
[2024-10-07 16:33] LABS: PROCALCITONIN 15.28 ng/ml
[2024-10-07 16:37] LABS: C REACTIVE PROTEIN QUANTITATIV 26.92 MG/DL (<1.0)
[2024-10-07 20:00] VITALS: BP 140/50; TEMP 97.7; O2SAT 96
[2024-10-07] MEDS: CEFUROXIME 500 MG TAB PO SCH (21:11)
[2024-10-08 04:00] VITALS: BP 142/44; TEMP 97.9; O2SAT 94
[2024-10-08 05:32] LABS: BASO % 0.2 % (0.0-1.0); EOS # 0.1 10^3/uL (0.0-0.5); EOS % 0.4 % (0.0-3.0); HEMATOCRIT 34.5 % (42.0-52.0); HEMOGLOBIN 11.4 g/dl (13.5-17.5); LYMPH # 0.9 10^3/uL (1.5-5.0); MEAN CORPUSCULAR HEMOGLOBIN 31.8 pg (27.0-33.0); MEAN CORPUSCULAR VOLUME 96.4 fl (80.0-96.0); MONO # 1.4 10^3/uL (0.0-0.8); MONO % 10.6 % (2.0-8.0); NEUTROPHILS # 10.5 10^3/uL (1.5-8.5); NEUTROPHILS % 81.2 % (36.0-66.0); PLATELET COUNT, AUTOMATED 162 10^3/uL (150-450); RED BLOOD COUNT 3.58 10^6/uL (4.30-6.10); WHITE BLOOD COUNT 12.9 10^3/uL (4.0-10.0)
[2024-10-08 05:56] LABS: BLOOD UREA NITROGEN 20 MG/DL (9-23); CALCIUM LEVEL 8.1 MG/DL (8.3-10.6); CARBON DIOXIDE LEVEL 25 MMOL/L (20-31); CHLORIDE LEVEL 103 MMOL/L (98-107); CREATININE FOR GFR 0.57 MG/DL (0.70-1.30); GLOMERULAR FILTRATION RATE > 60.0 (>35); GLUCOSE, FASTING 127 MG/DL (74-106); POTASSIUM SERUM 3.7 MMOL/L (3.5-5.1); SODIUM LEVEL 136 MMOL/L (136-145)
[2024-10-08] MEDS ORDERED: NALOXONE INJ 0.4MG/1ML VIAL IV PRN (10:25)
[2024-10-08] MEDS: LIDOCAINE 5% (LIDODERM) PATCH TD SCH (10:29)
[2024-10-08] MEDS ORDERED: PILL CUTTER 1 EACH XX PRN (10:35)
[2024-10-08] MEDS: oxyCODONE 5MG TAB PO ONE (11:32)
[2024-10-08] MEDS: DICLOFENAC EPOLAMINE 1.3% PATCH TOP SCH (11:33)
[2024-10-08 12:00] VITALS: BP 139/77; TEMP 97.9; O2SAT 96
[2024-10-08] MEDS: ACETAMINOPHEN 500 MG TAB PO SCH (12:28)
[2024-10-08] MEDS: oxyCODONE 5MG TAB PO SCH (15:51)
[2024-10-08 20:00] VITALS: BP 100/60; TEMP 97; O2SAT 94
[2024-10-09 04:00] VITALS: BP 113/57; TEMP 96.8; O2SAT 94
[2024-10-09 06:54] LABS: BASO % 0.4 % (0.0-1.0); EOS # 0.1 10^3/uL (0.0-0.5); EOS % 0.9 % (0.0-3.0); HEMATOCRIT 32.7 % (42.0-52.0); HEMOGLOBIN 10.8 g/dl (13.5-17.5); LYMPH # 0.9 10^3/uL (1.5-5.0); LYMPH % 9.1 % (24.0-44.0); MEAN CORPUSCULAR HEMOGLOBIN 31.6 pg (27.0-33.0); MEAN CORPUSCULAR VOLUME 95.6 fl (80.0-96.0); MONO % 9.9 % (2.0-8.0); NEUTROPHILS # 7.5 10^3/uL (1.5-8.5); NEUTROPHILS % 78.4 % (36.0-66.0); PLATELET COUNT, AUTOMATED 150 10^3/uL (150-450); RED BLOOD COUNT 3.42 10^6/uL (4.30-6.10); WHITE BLOOD COUNT 9.6 10^3/uL (4.0-10.0)
[2024-10-09 07:19] LABS: BLOOD UREA NITROGEN 17 MG/DL (9-23); CALCIUM LEVEL 7.9 MG/DL (8.3-10.6); CARBON DIOXIDE LEVEL 28 MMOL/L (20-31); CHLORIDE LEVEL 102 MMOL/L (98-107); CREATININE FOR GFR 0.59 MG/DL (0.70-1.30); GLOMERULAR FILTRATION RATE > 60.0 (>35); GLUCOSE, FASTING 113 MG/DL (74-106); POTASSIUM SERUM 3.5 MMOL/L (3.5-5.1); SODIUM LEVEL 137 MMOL/L (136-145)
[2024-10-09 07:25] LABS: PROCALCITONIN 5.38 ng/ml
[2024-10-09 07:26] LABS: ERYTHROCYTE SEDIMENTATION RATE 49 mm/hr (0-20)
[2024-10-09 07:30] LABS: C REACTIVE PROTEIN QUANTITATIV 25.36 MG/DL (<1.0)
[2024-10-09] MEDS: AZITHROMYCIN 250MG TABLET PO ONE (09:23)
[2024-10-09] MEDS ORDERED: AZITHROMYCIN SUSP 200MG/5ML 30ML BOTTLE PO ONE (11:00)
[2024-10-09] MEDS: traMADol 50 MG TAB PO PRN (13:39)
[2024-10-09] MEDS: oxyCODONE 5MG TAB PO ONE (16:16)
[2024-10-09 20:00] VITALS: BP 123/60; TEMP 97.3; O2SAT 96
[2024-10-10] MEDS: oxyCODONE 5MG TAB PO PRN (02:17)
[2024-10-10 03:40] VITALS: BP 126/63; TEMP 97.2; O2SAT 96
[2024-10-10 06:09] LABS: BASO % 0.2 % (0.0-1.0); EOS # 0.1 10^3/uL (0.0-0.5); EOS % 1.2 % (0.0-3.0); HEMATOCRIT 32.3 % (42.0-52.0); HEMOGLOBIN 10.7 g/dl (13.5-17.5); LYMPH # 1.2 10^3/uL (1.5-5.0); LYMPH % 11.4 % (24.0-44.0); MEAN CORPUSCULAR HEMOGLOBIN 31.4 pg (27.0-33.0); MEAN CORPUSCULAR HGB CONC 33.1 g/dl (32.0-36.5); MEAN CORPUSCULAR VOLUME 94.7 fl (80.0-96.0); MONO # 1.1 10^3/uL (0.0-0.8); MONO % 10.7 % (2.0-8.0); NEUTROPHILS # 7.8 10^3/uL (1.5-8.5); NEUTROPHILS % 75.2 % (36.0-66.0); PLATELET COUNT, AUTOMATED 191 10^3/uL (150-450); RED BLOOD COUNT 3.41 10^6/uL (4.30-6.10); WHITE BLOOD COUNT 10.4 10^3/uL (4.0-10.0)
[2024-10-10 06:33] LABS: BLOOD UREA NITROGEN 13 MG/DL (9-23); CALCIUM LEVEL 7.8 MG/DL (8.3-10.6); CARBON DIOXIDE LEVEL 28 MMOL/L (20-31); CHLORIDE LEVEL 103 MMOL/L (98-107); CREATININE FOR GFR 0.52 MG/DL (0.70-1.30); GLOMERULAR FILTRATION RATE > 60.0 (>35); GLUCOSE, FASTING 104 MG/DL (74-106); POTASSIUM SERUM 3.9 MMOL/L (3.5-5.1); SODIUM LEVEL 137 MMOL/L (136-145)
[2024-10-10] MEDS: AZITHROMYCIN 250MG TABLET PO SCH (08:47)
[2024-10-10] MEDS ORDERED: AZITHROMYCIN SUSP 200MG/5ML 30ML BOTTLE PO SCH (09:00)
[2024-10-11 04:00] VITALS: BP 125/63; TEMP 97; O2SAT 95
[2024-10-11 04:41] VITALS: TEMP 97
[2024-10-11 08:03] LABS: HEMATOCRIT 32.4 % (42.0-52.0); HEMOGLOBIN 10.9 g/dl (13.5-17.5); MEAN CORPUSCULAR HEMOGLOBIN 31.6 pg (27.0-33.0); MEAN CORPUSCULAR HGB CONC 33.6 g/dl (32.0-36.5); MEAN CORPUSCULAR VOLUME 93.9 fl (80.0-96.0); PLATELET COUNT, AUTOMATED 241 10^3/uL (150-450); RED BLOOD COUNT 3.45 10^6/uL (4.30-6.10)
[2024-10-11 08:32] LABS: ERYTHROCYTE SEDIMENTATION RATE 74 mm/hr (0-20)
[2024-10-11 08:36] LABS: BLOOD UREA NITROGEN 12 MG/DL (9-23); C REACTIVE PROTEIN QUANTITATIV 22.26 MG/DL (<1.0); CARBON DIOXIDE LEVEL 30 MMOL/L (20-31); CHLORIDE LEVEL 102 MMOL/L (98-107); CREATININE FOR GFR 0.57 MG/DL (0.70-1.30); GLOMERULAR FILTRATION RATE > 60.0 (>35); GLUCOSE, FASTING 91 MG/DL (74-106); POTASSIUM SERUM 3.7 MMOL/L (3.5-5.1); SODIUM LEVEL 137 MMOL/L (136-145)
[2024-10-12 04:00] VITALS: BP 152/69; TEMP 97.5; O2SAT 95
[2024-10-13 04:15] VITALS: BP 140/62; TEMP 97.5; O2SAT 96
[2024-10-13] MEDS ORDERED: CEFU50TA PO (08:00)
[2024-10-13] MEDS ORDERED: AZIT-12 PO (08:00)
[2024-10-13] MEDS ORDERED: LIDO5TD TD (08:00)
[2024-10-13] MEDS: oxyCODONE 5MG TAB PO ONE (10:52)
== END 2024-10-13 11:25 | DRG 698 ==
LOC: M ED 11:30 → M ED INP 14:45 → M MSPAV 21:04
PROVIDERS: ADMIT General Practice; ATTEND Internal Medicine
DX: T83.511A Infection and inflammatory reaction due to indwelling urethral catheter, initial encounter (principal); G93.41 Metabolic encephalopathy; Z68.1 Body mass index [BMI] 19.9 or less, adult; R45.851 Suicidal ideations; R78.81 Bacteremia; N40.1 Benign prostatic hyperplasia with lower urinary tract symptoms; B96.4 Proteus (mirabilis) (morganii) as the cause of diseases classified elsewhere; I48.0 Paroxysmal atrial fibrillation; E78.5 Hyperlipidemia, unspecified; N39.0 Urinary tract infection, site not specified; I25.10 Atherosclerotic heart disease of native coronary artery without angina pectoris; I73.9 Peripheral vascular disease, unspecified; M48.061 Spinal stenosis, lumbar region without neurogenic claudication; G89.29 Other chronic pain; R31.0 Gross hematuria; K21.9 Gastro-esophageal reflux disease without esophagitis; Z96.642 Presence of left artificial hip joint; R26.89 Other abnormalities of gait and mobility; D53.9 Nutritional anemia, unspecified; Z79.01 Long term (current) use of anticoagulants; Z79.891 Long term (current) use of opiate analgesic; Z79.899 Other long term (current) drug therapy; Z95.5 Presence of coronary angioplasty implant and graft; Z88.1 Allergy status to other antibiotic agents; Z85.07 Personal history of malignant neoplasm of pancreas

== ENCOUNTER 2024-11-24 22:44 | Emergency (ER) | payer MEDICARE ==
[~2024-11-24] VITALS: Ht 190.5 cm; Wt 76.3 kg
[~2024-11-24 22:44] MED LIST changes: +ACET-683 PO; +ACET650T15 PO; +AZIT-12 PO; +BACL5TAB2 PO; +CEFU50TA PO; +DICL100G10 TOP; +LIDO5TD TD
[2024-11-24] MEDS: LIDOCAINE 2% 5ML JELLY UROJET TOP ONE (23:15)
[2024-11-24 23:59] LABS: KETONE, URINE AUTO RFX NEGATIVE (NEGATIVE); MUCUS, URINE RFX MODERATE (NEGATIVE); NITRITE, URINE AUTO RFX NEGATIVE (NEGATIVE); RBC, URINE AUTO RFX TNTC /HPF (0-3); SQUAM EPITHELIAL CELL UR AURFX 0 /HPF (0-6); URIC ACID CRYSTALS RFX SMALL
[2024-11-25] LABS: LEUKOCYTE ESTERASE UR AUTO RFX 2+ (NEGATIVE); WBC, URINE AUTO RFX TNTC /HPF (0-3)
[2024-11-25] MEDS ORDERED: CEFD300C PO (00:12)
[2024-11-25 00:28] LABS: BASO # 0.1 10^3/uL (0.0-0.2); BASO % 0.6 % (0.0-1.0); EOS # 0.3 10^3/uL (0.0-0.5); EOS % 2.6 % (0.0-3.0); HEMOGLOBIN 12.7 g/dl (13.5-17.5); LYMPH # 1.5 10^3/uL (1.5-5.0); LYMPH % 15.4 % (24.0-44.0); MEAN CORPUSCULAR HEMOGLOBIN 30.5 pg (27.0-33.0); MEAN CORPUSCULAR HGB CONC 32.6 g/dl (32.0-36.5); MEAN CORPUSCULAR VOLUME 93.5 fl (80.0-96.0); MONO # 0.9 10^3/uL (0.0-0.8); MONO % 9.4 % (2.0-8.0); NEUTROPHILS # 7.1 10^3/uL (1.5-8.5); NEUTROPHILS % 71.6 % (36.0-66.0); PLATELET COUNT, AUTOMATED 376 10^3/uL (150-450); RED BLOOD COUNT 4.17 10^6/uL (4.30-6.10); WHITE BLOOD COUNT 9.9 10^3/uL (4.0-10.0)
[2024-11-25] MEDS: CEFDINIR 300 MG CAP (OMNICEF) PO ONE (00:40)
[2024-11-25 03:50] VITALS: BP 138/63; TEMP 98.1; O2SAT 97
== END 2024-11-25 03:50 | disposition home or self-care (01) ==
LOC: EDBD 22:44 → M ED 22:44
DX: N39.0 Urinary tract infection, site not specified (principal); I10 Essential (primary) hypertension; K21.9 Gastro-esophageal reflux disease without esophagitis; E78.5 Hyperlipidemia, unspecified; N40.0 Benign prostatic hyperplasia without lower urinary tract symptoms; Z79.01 Long term (current) use of anticoagulants; Z88.1 Allergy status to other antibiotic agents; Z79.899 Other long term (current) drug therapy; Z79.2 Long term (current) use of antibiotics

== ENCOUNTER → 2024-11-26 | Outpatient (REF) | payer MEDICARE ==
[~2024-11-26] MED LIST changes: +CEFD300C PO
== END ==
LOC: M SFHCPLAZ 16:31
DX: Z53.9 Procedure and treatment not carried out, unspecified reason (principal)

== ENCOUNTER 2024-12-03 18:37 | Inpatient (IN) | payer MEDICARE ==
[~2024-12-03] VITALS: Ht 190.5 cm; Wt 72.8 kg
[~2024-12-03 18:37] MED LIST changes: -CEFD1CAP9 PO; -CLOT1CRE56 TOP
[2024-12-03] MEDS: ONDANSETRON 4MG 2ML VIAL IV ONE (20:09)
[2024-12-03] MEDS: MORPHINE 4 MG/ML 1ML VIAL IV PRN (20:09)
[2024-12-03 20:16] LABS: BASO # 0.1 10^3/uL (0.0-0.2); BASO % 0.4 % (0.0-1.0); EOS # 0.2 10^3/uL (0.0-0.5); EOS % 1.3 % (0.0-3.0); HEMATOCRIT 40.6 % (42.0-52.0); HEMOGLOBIN 12.9 g/dl (13.5-17.5); LYMPH # 1.5 10^3/uL (1.5-5.0); LYMPH % 11.6 % (24.0-44.0); MEAN CORPUSCULAR HEMOGLOBIN 29.6 pg (27.0-33.0); MEAN CORPUSCULAR HGB CONC 31.8 g/dl (32.0-36.5); MEAN CORPUSCULAR VOLUME 93.1 fl (80.0-96.0); MONO # 0.8 10^3/uL (0.0-0.8); MONO % 6.1 % (2.0-8.0); NEUTROPHILS # 10.5 10^3/uL (1.5-8.5); PLATELET COUNT, AUTOMATED 401 10^3/uL (150-450); RED BLOOD COUNT 4.36 10^6/uL (4.30-6.10); WHITE BLOOD COUNT 13.2 10^3/uL (4.0-10.0)
[2024-12-03 21:35] LABS: BLOOD UREA NITROGEN 10 MG/DL (9-23); CALCIUM LEVEL 8.6 MG/DL (8.3-10.6); CARBON DIOXIDE LEVEL 30 MMOL/L (20-31); CHLORIDE LEVEL 99 MMOL/L (98-107); CREATININE FOR GFR 0.53 MG/DL (0.70-1.30); GLOMERULAR FILTRATION RATE > 60.0 (>35); GLUCOSE, FASTING 101 MG/DL (74-106); SODIUM LEVEL 138 MMOL/L (136-145)
[2024-12-03] MEDS ORDERED: CLOT1CRE56 TOP (22:36)
[2024-12-03] MEDS ORDERED: ELIQ5TAB PO (22:36)
[2024-12-03] MEDS ORDERED: CEFD1CAP9 PO (22:36)
[2024-12-03] MEDS ORDERED: HOME MED LIST COMPLETE! XX SCH (22:40)
[2024-12-03] MEDS ORDERED: oxyCODONE 15MG CR TAB PO PRN (23:35)
[2024-12-04 01:36] VITALS: BP 120/72; TEMP 97.3; O2SAT 96
[2024-12-04] MEDS ORDERED: PILL CUTTER 1 EACH XX PRN (02:10)
[2024-12-04] MEDS: ACETAMINOPHEN 650MG ER TAB (TYLENOL ARTHRITIS) PO PRN (02:13)
[2024-12-04] MEDS: traMADol 50 MG TAB PO PRN (02:14)
[2024-12-04] MEDS: PIPERACILLIN/TAZOBACTAM SOD 3.375 GM in DEXTROSE 5% (D5W) ADV/MINI-BAG 50 ML IV SCH (02:18)
[2024-12-04] MEDS ORDERED: CREON-12 CAPSULE (PANCRELIPASE) PO PRN (02:30)
[2024-12-04] MEDS: VANCOMYCIN HCL 1,000 MG, VIAL MATE ADAPTER 1 EACH in NS 250 ML IV ONE (03:08)
[2024-12-04] MEDS: PANTOPRAZOLE 40MG VIAL IV SCH (03:08)
[2024-12-04] MEDS: KETOROLAC 30 MG/ML 1ML VIAL IV ONE (03:08)
[2024-12-04 04:00] VITALS: BP 103/57; TEMP 97.5; O2SAT 97
[2024-12-04] MEDS: MORPHINE 2 MG/ML 1ML VIAL IV ONE (04:54)
[2024-12-04] MEDS: VANCOMYCIN HCL 750 MG, VIAL MATE ADAPTER 1 EACH in NS 250 ML IV SCH (06:50)
[2024-12-04 08:09] LABS: BASO % 0.3 % (0.0-1.0); EOS # 0.3 10^3/uL (0.0-0.5); EOS % 2.5 % (0.0-3.0); HEMATOCRIT 35.5 % (42.0-52.0); HEMOGLOBIN 11.4 g/dl (13.5-17.5); LYMPH # 1.4 10^3/uL (1.5-5.0); LYMPH % 11.9 % (24.0-44.0); MEAN CORPUSCULAR HGB CONC 32.1 g/dl (32.0-36.5); MEAN CORPUSCULAR VOLUME 93.4 fl (80.0-96.0); MONO # 0.8 10^3/uL (0.0-0.8); MONO % 6.8 % (2.0-8.0); NEUTROPHILS % 77.8 % (36.0-66.0); PLATELET COUNT, AUTOMATED 365 10^3/uL (150-450); WHITE BLOOD COUNT 11.5 10^3/uL (4.0-10.0)
[2024-12-04 08:39] LABS: BLOOD UREA NITROGEN 11 MG/DL (9-23); C REACTIVE PROTEIN QUANTITATIV 12.06 MG/DL (<1.0); CALCIUM LEVEL 8.1 MG/DL (8.3-10.6); CARBON DIOXIDE LEVEL 28 MMOL/L (20-31); CHLORIDE LEVEL 101 MMOL/L (98-107); CREATININE FOR GFR 0.55 MG/DL (0.70-1.30); GLOMERULAR FILTRATION RATE > 60.0 (>35); GLUCOSE, FASTING 98 MG/DL (74-106); MAGNESIUM LEVEL 1.8 MG/DL (1.8-2.4); POTASSIUM SERUM 3.8 MMOL/L (3.5-5.1); SODIUM LEVEL 135 MMOL/L (136-145)
[2024-12-04] MEDS: TAMSULOSIN 0.4 MG CAP PO SCH (10:37)
[2024-12-04] MEDS: APIXABAN 5 MG TAB (ELIQUIS) PO SCH (10:37)
[2024-12-04] MEDS: CLOTRIMAZOLE 1% TOPICAL CREAM 30GM TOP SCH (10:38)
[2024-12-04] MEDS: CREON-24 CAPSULE (PANCRELIPASE) PO SCH (10:38)
[2024-12-04 12:00] VITALS: BP 104/56; TEMP 97.3; O2SAT 93
[2024-12-04] MEDS: PERCOCET 5MG/325MG TAB PO PRN (16:11)
[2024-12-04] MEDS: MORPHINE 4 MG/ML 1ML VIAL IV ONE (17:51)
[2024-12-04 19:56] VITALS: BP 110/63; TEMP 97.5; O2SAT 95
[2024-12-04] MEDS: FINASTERIDE 5MG TAB PO SCH (20:59)
[2024-12-04] MEDS: NS (Normal Saline) 0.9% 1,000 ML IV SCH (21:02)
[2024-12-05 03:15] VITALS: BP 114/57; TEMP 98.1; O2SAT 96
[2024-12-05] MEDS: BACLOFEN 5MG PER 1/2 TABLET PO PRN (04:16)
[2024-12-05 06:16] LABS: BASO % 0.4 % (0.0-1.0); EOS # 0.4 10^3/uL (0.0-0.5); EOS % 3.6 % (0.0-3.0); HEMATOCRIT 29.3 % (42.0-52.0); HEMOGLOBIN 9.7 g/dl (13.5-17.5); LYMPH # 1.5 10^3/uL (1.5-5.0); LYMPH % 14.7 % (24.0-44.0); MEAN CORPUSCULAR HEMOGLOBIN 30.7 pg (27.0-33.0); MEAN CORPUSCULAR HGB CONC 33.1 g/dl (32.0-36.5); MEAN CORPUSCULAR VOLUME 92.7 fl (80.0-96.0); MONO # 0.9 10^3/uL (0.0-0.8); MONO % 8.4 % (2.0-8.0); NEUTROPHILS # 7.5 10^3/uL (1.5-8.5); NEUTROPHILS % 72.2 % (36.0-66.0); PLATELET COUNT, AUTOMATED 314 10^3/uL (150-450); RED BLOOD COUNT 3.16 10^6/uL (4.30-6.10); WHITE BLOOD COUNT 10.4 10^3/uL (4.0-10.0)
[2024-12-05 06:40] LABS: C REACTIVE PROTEIN QUANTITATIV 11.58 MG/DL (<1.0)
[2024-12-05 06:41] LABS: BLOOD UREA NITROGEN 18 MG/DL (9-23); CALCIUM LEVEL 7.8 MG/DL (8.3-10.6); CARBON DIOXIDE LEVEL 28 MMOL/L (20-31); CHLORIDE LEVEL 102 MMOL/L (98-107); CREATININE FOR GFR 0.58 MG/DL (0.70-1.30); GLOMERULAR FILTRATION RATE > 60.0 (>35); GLUCOSE, FASTING 102 MG/DL (74-106); MAGNESIUM LEVEL 1.8 MG/DL (1.8-2.4); POTASSIUM SERUM 3.8 MMOL/L (3.5-5.1); SODIUM LEVEL 137 MMOL/L (136-145)
[2024-12-05] MEDS: MORPHINE 2 MG/ML 1ML VIAL IV ONE (08:26)
[2024-12-05] MEDS: LIDOCAINE W/EPINEPHRINE 1% 20ML VIAL SC ONE (08:26)
[2024-12-05] MEDS: PANTOPRAZOLE 40MG TAB (PROTONIX) PO SCH (08:26)
[2024-12-05 12:00] VITALS: BP 101/41; TEMP 97.9; O2SAT 100
[2024-12-05 20:18] VITALS: BP 127/55; TEMP 98.2; O2SAT 97
[2024-12-06] MEDS: RAMELTEON 8 MG TAB (ROZEREM) PO ONE (00:11)
[2024-12-06 05:26] VITALS: BP 119/54; TEMP 99.1; O2SAT 94
[2024-12-06 05:47] LABS: BASO % 0.5 % (0.0-1.0); EOS # 0.4 10^3/uL (0.0-0.5); EOS % 4.1 % (0.0-3.0); HEMATOCRIT 30.1 % (42.0-52.0); HEMOGLOBIN 9.9 g/dl (13.5-17.5); LYMPH # 1.8 10^3/uL (1.5-5.0); LYMPH % 20.5 % (24.0-44.0); MEAN CORPUSCULAR HEMOGLOBIN 30.6 pg (27.0-33.0); MEAN CORPUSCULAR HGB CONC 32.9 g/dl (32.0-36.5); MEAN CORPUSCULAR VOLUME 92.9 fl (80.0-96.0); MONO # 0.8 10^3/uL (0.0-0.8); MONO % 8.7 % (2.0-8.0); NEUTROPHILS # 5.8 10^3/uL (1.5-8.5); NEUTROPHILS % 65.4 % (36.0-66.0); PLATELET COUNT, AUTOMATED 338 10^3/uL (150-450); RED BLOOD COUNT 3.24 10^6/uL (4.30-6.10); WHITE BLOOD COUNT 8.8 10^3/uL (4.0-10.0)
[2024-12-06 06:39] LABS: BLOOD UREA NITROGEN 13 MG/DL (9-23); C REACTIVE PROTEIN QUANTITATIV 8.46 MG/DL (<1.0); CALCIUM LEVEL 7.9 MG/DL (8.3-10.6); CARBON DIOXIDE LEVEL 27 MMOL/L (20-31); CHLORIDE LEVEL 107 MMOL/L (98-107); CREATININE FOR GFR 0.53 MG/DL (0.70-1.30); GLOMERULAR FILTRATION RATE > 60.0 (>35); GLUCOSE, FASTING 99 MG/DL (74-106); MAGNESIUM LEVEL 2.1 MG/DL (1.8-2.4); POTASSIUM SERUM 3.9 MMOL/L (3.5-5.1); SODIUM LEVEL 142 MMOL/L (136-145)
[2024-12-06 12:00] VITALS: BP 94/49; TEMP 98.4; O2SAT 95
[2024-12-06] MEDS ORDERED: FLUBLOK(EGGFREE) TRIVAL(24-25) VACCINE PF 0.5ML SYRINGE 18YRS & OLDER IM.IMMUN ONE (12:00)
[2024-12-06] MEDS: VANCOMYCIN HCL 1,000 MG, VIAL MATE ADAPTER 1 EACH in NS 250 ML IV SCH (16:04)
[2024-12-06 20:00] VITALS: BP 112/63; TEMP 98.8; O2SAT 96
[2024-12-07 04:00] VITALS: BP 111/64; TEMP 97.7; O2SAT 97
[2024-12-07 06:22] LABS: BASO # 0.1 10^3/uL (0.0-0.2); BASO % 0.5 % (0.0-1.0); EOS # 0.4 10^3/uL (0.0-0.5); EOS % 4.3 % (0.0-3.0); HEMOGLOBIN 9.9 g/dl (13.5-17.5); LYMPH # 1.7 10^3/uL (1.5-5.0); LYMPH % 17.6 % (24.0-44.0); MEAN CORPUSCULAR HEMOGLOBIN 29.8 pg (27.0-33.0); MEAN CORPUSCULAR HGB CONC 31.9 g/dl (32.0-36.5); MEAN CORPUSCULAR VOLUME 93.4 fl (80.0-96.0); MONO # 0.8 10^3/uL (0.0-0.8); MONO % 8.8 % (2.0-8.0); NEUTROPHILS # 6.4 10^3/uL (1.5-8.5); NEUTROPHILS % 68.2 % (36.0-66.0); PLATELET COUNT, AUTOMATED 347 10^3/uL (150-450); RED BLOOD COUNT 3.32 10^6/uL (4.30-6.10); WHITE BLOOD COUNT 9.4 10^3/uL (4.0-10.0)
[2024-12-07 07:00] LABS: BLOOD UREA NITROGEN 9 MG/DL (9-23); C REACTIVE PROTEIN QUANTITATIV 5.61 MG/DL (<1.0); CALCIUM LEVEL 7.8 MG/DL (8.3-10.6); CARBON DIOXIDE LEVEL 27 MMOL/L (20-31); CHLORIDE LEVEL 107 MMOL/L (98-107); CREATININE FOR GFR 0.49 MG/DL (0.70-1.30); GLOMERULAR FILTRATION RATE > 60.0 (>35); GLUCOSE, FASTING 163 MG/DL (74-106); POTASSIUM SERUM 3.6 MMOL/L (3.5-5.1); SODIUM LEVEL 142 MMOL/L (136-145)
[2024-12-07 12:20] VITALS: BP 111/66; TEMP 97.7; O2SAT 96
[2024-12-07] MEDS: HYDROmorphone 2 MG TAB PO PRN (14:25)
[2024-12-08 12:00] VITALS: BP 133/63; TEMP 97.9; O2SAT 94
[2024-12-08] MEDS: BISACODYL 10MG SUPP PR PRN (15:07)
[2024-12-08 20:00] VITALS: BP 131/61; TEMP 98.6; O2SAT 96
[2024-12-09 04:00] VITALS: BP 132/72; TEMP 98.6; O2SAT 94
[2024-12-09] MEDS ORDERED: ONDANSETRON 4MG ORAL DISINTEGRATING TAB PO PRN (11:45)
[2024-12-09] MEDS ORDERED: HYOSCYAMINE SULFATE 0.125 MG SUBL TABLET PO PRN (11:45)
[2024-12-09] MEDS: MORPHINE 10MG/0.5ML ORAL CONCENTRATE SOLUTION U/D SL SCH (13:42)
[2024-12-10] MEDS: MORPHINE 10MG/0.5ML ORAL CONCENTRATE SOLUTION U/D SL PRN (01:21)
[2024-12-10] MEDS: HYDROmorphone 2 MG TAB PO PRN (18:06)
[2024-12-10] MEDS: MORPHINE 10MG/0.5ML ORAL CONCENTRATE SOLUTION U/D SL SCH (20:21)
[2024-12-13] MEDS: HYDROmorphone 2 MG TAB PO PRN (00:39)
[2024-12-13] MEDS: LORazepam 1 MG TAB PO PRN (02:11)
[2024-12-13] MEDS: MORPHINE 10MG/0.5ML ORAL CONCENTRATE SOLUTION U/D SL PRN (10:51)
[2024-12-13] MEDS: MORPHINE 10MG/0.5ML ORAL CONCENTRATE SOLUTION U/D SL SCH (13:40)
[2024-12-15] MEDS: ATROPINE SULFATE 1% OPHTH SOLN 2ML BTL SL PRN (01:39)
[2024-12-15] MEDS ORDERED: PANTOPRAZOLE 40MG TAB (PROTONIX) PO PRN (07:55)
[2024-12-15] MEDS ORDERED: MORP1SOL5 PO (08:05)
[2024-12-15] MEDS ORDERED: HYOS125TA PO (08:05)
[2024-12-15] MEDS ORDERED: ONDA-282 PO (08:05)
[2024-12-15] MEDS ORDERED: BISA10SU PR (08:05)
[2024-12-15] MEDS ORDERED: ATIV1TAB10 PO (08:05)
== END 2024-12-15 10:49 | disposition hospice, inpatient (51) | DRG 853 ==
LOC: M ED 18:37 → EEVIPCON 12-04 00:33 → M ED INP 12-04 00:33 → M MSPAV 12-04 01:32
PROVIDERS: ADMIT Student in an Organized Health Care Education/Training Program; ATTEND Student in an Organized Health Care Education/Training Program
PROC: 0LBW0ZZ Excision of Left Foot Tendon, Open Approach (ICD-10-PCS; principal; 2024-12-05)
PROC: 0JB90ZZ Excision of Buttock Subcutaneous Tissue and Fascia, Open Approach (ICD-10-PCS; 2024-12-05)
DX: A41.9 Sepsis, unspecified organism (principal); L89.153 Pressure ulcer of sacral region, stage 3; G95.20 Unspecified cord compression; M46.28 Osteomyelitis of vertebra, sacral and sacrococcygeal region; L03.317 Cellulitis of buttock; M46.24 Osteomyelitis of vertebra, thoracic region; Z66 Do not resuscitate; I48.0 Paroxysmal atrial fibrillation; N40.1 Benign prostatic hyperplasia with lower urinary tract symptoms; K21.9 Gastro-esophageal reflux disease without esophagitis; I25.10 Atherosclerotic heart disease of native coronary artery without angina pectoris; E78.5 Hyperlipidemia, unspecified; Z96.642 Presence of left artificial hip joint; G62.9 Polyneuropathy, unspecified; G89.29 Other chronic pain; M48.061 Spinal stenosis, lumbar region without neurogenic claudication; L89.322 Pressure ulcer of left buttock, stage 2; L89.620 Pressure ulcer of left heel, unstageable; M46.44 Discitis, unspecified, thoracic region; Z95.5 Presence of coronary angioplasty implant and graft; Z74.01 Bed confinement status; Z79.01 Long term (current) use of anticoagulants; Z79.899 Other long term (current) drug therapy; Z88.1 Allergy status to other antibiotic agents

== ENCOUNTER → 2024-12-03 | Outpatient (REF) | payer MEDICARE ==
[~2024-12-03] MED LIST changes: +CEFD1CAP9 PO; +CLOT1CRE56 TOP
[2024-12-03 14:07] LABS: APPEARANCE, URINE CLEAR (CLEAR); BACTERIA, URINE AUTO 1+ (NEGATIVE); BILIRUBIN, URINE AUTO NEGATIVE (NEGATIVE); BLOOD, URINE BLOOD 2+ (NEGATIVE); COLOR, URINE YELLOW (YELLOW); GLUCOSE, URINE (UA) AUTO NEGATIVE (NEGATIVE); KETONE, URINE AUTO NEGATIVE (NEGATIVE); LEUKOCYTE ESTERASE, URINE AUTO TRACE (NEGATIVE); NITRITE, URINE AUTO NEGATIVE (NEGATIVE); PROTEIN, URINE AUTO NEGATIVE (NEGATIVE); RBC, URINE AUTO 2 /HPF (0-3); SPECIFIC GRAVITY URINE AUTO 1.008 (1.002-1.035); SQUAMOUS EPITHELIAL CELL UR AU 0 /HPF (0-6); UROBILINOGEN, URINE AUTO 0.2 mg/dL (0.0-2.0); WBC, URINE AUTO 2 /HPF (0-3)
== END ==
LOC: M LAB REF 13:07
DX: R82.998 Other abnormal findings in urine (principal)